=== PATIENT | male | born 1965 | race Caucasian/White ===

== ENCOUNTER 2024-09-21 09:31 | Emergency (ER) | payer MEDICAID, SELFPAY ==
--- NOTE | ~2024-09-21 | XR_ITS ---
EXAMINATION: XR CHEST 1 VIEW HISTORY: AMS COMPARISON: There are no prior studies for comparison. FINDINGS: A single AP portable view of the chest performed at 11:08 AM is submitted. The lungs are expanded and clear. There is no pleural effusion, pneumothorax, or pulmonary vascular congestion. The heart is normal in size. There is degenerative disc disease of the spine. XR/XR chest 1V IMPRESSION: Clear lungs. Electronically signed by: Wilder Lr MD 09/21/2024 11:19 AM EDT
--- NOTE | ~2024-09-21 | CT_ITS ---
EXAMINATION: CT HEAD WITHOUT CONTRAST CLINICAL INFORMATION: Altered mental status. COMPARISON: None available. TECHNIQUE: Contiguous axial imaging was performed from the skull base to vertex without intravenous administration of contrast. This CT examination was performed using dose optimization techniques as appropriate, variously including the following: *Automated exposure control *Adjustment of mA and/or kV according to patient size (this includes techniques or standardized protocols for targeted exams where dose is matched to indication/reason for exam; i.e. extremities or head) *Use of iterative reconstruction technique FINDINGS: There is no evidence of intracranial hemorrhage or extra-axial fluid collection. There is no mass effect, or edema. No CT evidence of acute territorial infarct. There is a focus of posterior right frontal and parietal encephalomalacia, likely old infarct. Mild resultant ex vacuo dilatation of the right lateral ventricular body and atrium. Ventricles, sulci, and cisterns are otherwise normal in size and configuration for patient age. No hydrocephalus. No midline shift. Negative hyperdense MCA sign. Negative insular ribbon sign. Old lacunar type infarcts right gangliocapsular region, and left thalamus. Patchy periventricular and deep white matter hypoattenuation is consistent with mild to moderate small vessel ischemic changes. Normal pituitary. Mild atheromatous calcification of the bilateral carotid siphons and V4 segments vertebral arteries bilaterally. Globes and orbital contents image normally. No extracranial soft tissue abnormalities. Small mucous retention cyst left maxillary antrum. The paranasal sinuses, mastoid air cells, and tympanic cavities are otherwise normally aerated. No suspicious bony abnormalities. There are no acute fractures evident. CT/CT head/brain wo IV con IMPRESSION: 1. No acute intracranial abnormality. 2. Old right frontoparietal region of encephalomalacia, likely old right MCA territory infarct. Small old lacunar type infarcts right gangliocapsular region and left thalamus. 3. Mild to moderate white matter small vessel ischemic changes. Electronically signed by: Jarrod Becker MD 09/21/2024 12:18 PM EDT
[2024-09-21 09:36] VITALS: BP 156/107; PULSE 117; O2SAT 97; BMI 28.7
--- NOTE | 2024-09-21 09:41 | ED_ITS ---
HPI - General Adult General Chief complaint: Recheck/Abnormal Lab/Rx Stated complaint: AMS,LOW BS 67 FROM SNF PER EMS Time Seen by Provider: 09/21/24 09:41 Source: patient and EMS Mode of arrival: EMS Limitations: no limitations History of Present Illness ED Provider: Jerri Mccarty PA-C HPI narrative: Patient is a 58 year old assigned male at with a history of left sided hemiplegia / hemiparesis s/p CVA, bipolar disorder, BPH, GERD, OA, hepatic fibrosis, PTSD, DM, and HLD, living at [facility], presenting to the emergency department today after an episode of altered mental status. EMS states that the patient was altered when they arrived with a sugar of 77 and they gave her glucagon and 15g of oral glucose. Patient states that he feels as he usually does. Patient denies any dizziness, lightheadedness, abdominal pain, nausea, vomiting, fever, chills, blurry vision, double vision, loss of vision, chest pain, difficulty breathing, shortness of breath, back pain, night sweats, pain with urination, increased urinary frequency, increased urinary urgency, blood in his urine or stool, syncope or a near syncopal episode, recent trauma or falls, bowel incontinence, bladder incontinence, or any other complaints at this time. Relieving factors: none Exacerbating factors: none Associated symptoms: denies other symptoms Treatments prior to arrival: none Related Data Allergies Allergy/AdvReac Type Severity Reaction Status Date / Time Penicillins AdvReac Gastrointestinal Verified 09/21/24 09:38 Upset Review of Systems 2 Constitutional: Constitutional: Reports no additional constitutional complaints, Denies chills, Denies fever(s) and Denies night sweats Eyes: Eyes: Reports no additional eye complaints, Denies blurry vision, Denies change in vision, Denies diplopia, Denies eye discharge, Denies loss of vision and Denies eye pain ENT: Denies dizziness Cardiovascular: Cardiovascular: Reports no additional cardiovascular complaints, Denies chest pain, Denies lightheadedness, Denies Loss of Consciousness and Denies dyspnea Respiratory: Respiratory: Reports no additional respiratory complaints and Denies dyspnea Gastrointestinal: Gastrointestinal: Reports no additional gastrointestinal complaints, Denies abdominal pain, Denies melena, Denies hematochezia, Denies change in bowel habits and Denies change in stool character Genitourinary: Genitourinary: Reports no additional male genitourinary complaints, Denies hematuria, Denies oliguria, Denies difficulty urinating, Denies dysuria, Denies urinary frequency, Denies urinary hesitancy, Denies urinary incontinence and Denies urinary urgency Musculoskeletal: Musculoskeletal: Reports no additional musculoskeletal complaints, Denies numbness and Denies tingling Neurologic: Denies dizziness, Denies loss of vision, Denies numbness and Denies tingling Comments: altered mental status - now resolved. Psychiatric: Psychiatric: Reports no additional psychiatric complaints Endocrine: Endocrine: Reports no additional endocrine complaints Hematologic/Lymphatic: Hematologic/Lymphatic: Reports no additional hematologic/lymphatic complaints Allergic/Immunologic: Allergic/Immunologic: Reports no additional allergic/immunologic complaints PMFSH Past Medical History Attestation statement: The following information was validated with the patient. Source: old records reviewed and nursing notes reviewed Social History Social History Smoked in Last 30 Days: No Use of substances other than those prescribed or required for medical reasons: No Advance Directives: No Advance Directives Information Provided: Yes Do you have a plan to hurt others: No Plan Physical Exam ED Vital Signs: Vital Signs - 24 hr 09/21/24 09:50 09/21/24 10:13 09/21/24 15:59 Temperature 97.1 F 96.8 F 97.1 F Pulse Rate 116 H 79 Respiratory Rate 18 18 Blood Pressure 173/69 H 186/97 H Pulse Oximetry 94 98 Oxygen Delivery Method Room Air Room Air BMI result Body Mass Index 28.7 Const General: cooperative, no acute distress, alert and awake Nutritional Appearance: well nourished Orientation/consciousness: patient oriented x3 Limitations: no limitations [facility] Head: Yes normal to inspection and Yes atraumatic Ears: hearing grossly normal bilaterally and external ears normal General nose exam: Normal external nose present, no nasal discharge noted and no epistaxis Face and sinus: Yes normal facial exam, No abrasion and No laceration Mouth: Normal oral and palatal mucosa present, no drooling and no muffled voice Eyes General: appearance normal, both eyes and all related structures Periorbital: periorbital findings normal Eyelids: Yes eyelids normal Conjunctivae: conjunctivae normal Pupils: Equal, round and reactive pupils present EOM: EOMs intact bilaterally Neck Neck: Yes normal visual inspection, Yes full ROM and Yes no lymphadenopathy Chest Chest palpation & inspection: normal inspection of the chest Resp Effort & Inspection: normal respiratory effort and able to speak in complete sentences GI Inspection: Yes normal to inspection Neuro Other: left sided hemiparesis / hemiplegia General: patient oriented x3 Cranial nerves: Yes Equal, round and reactive pupils present Cognition (Neuro): normal cognition Extrem General: Yes normal to inspection, Yes full ROM and Yes capillary refill normal Psych Appearance: grossly normal Mental Status: mental status grossly normal Affect: normal affect Attitude: cooperative Thought process: Normal thought process present Thought content: Normal thought content present Insight: Good insight present (Psych) Medications Administered Discontinued Medications Generic Name Dose Route Start Last Admin Trade Name Freq PRN Reason Stop Dose Admin Ceftriaxone Sodium 1 gm 09/21/24 11:46 09/21/24 12:31 Ceftriaxone Sodium 1 Gm Vial IVPUSH 09/21/24 11:47 1 gm ONCE ONE Administration Sodium Chloride 1,000 mls @ 999 mls/hr 09/21/24 12:00 09/21/24 15:52 Ns IV 09/21/24 13:00 Infused .Q1H1M MAURICE Infusion Lorazepam 1 mg 09/21/24 15:41 09/21/24 15:54 Lorazepam 1 Mg Tablet PO 09/21/24 15:42 1 mg ONCE ONE Administration Medical Decision Making Medical Decision Making [facility] Narrative: Patient is a 58 year old assigned male at with a history of left sided hemiplegia / hemiparesis s/p CVA, bipolar disorder, BPH, GERD, OA, hepatic fibrosis, PTSD, DM, and HLD, living at [facility], presenting to the emergency department today after an episode of altered mental status. Patient's physical exam was as noted in the physical exam portion of this note. Patient's blood work showed a WBC of 15.4 with a left shift, BUN of 29, CR of 1.35, lactic of 3.5, and ammonia of 63, with a total CK 450. Patient's urine showed no acute process. However, the patient was having difficulty urinating and found to have retention with 900mls on bladder scan for which a montoya catheter was placed. Patient's EKG was unremarkable. Patient's chest x-ray and head CT showed no acute process. I spoke to the [facility] Sweat Box Attendant, Dr. Rudd, who stated he would prefer the patient be transferred back to the [facility] facility rather than admitted. Patient's clinical presentation is consistent with an episode of hypoglycemia and new urinary retention and not sepsis (@1600). I explained my physical exam findings as well as all test results to the patient. I answered all questions asked by the patient. I stressed the importance of the patient taking his medication as directed (either prescribed or as the over the counter packaging recommends). I stressed the importance of the patient following up with his primary care provider and a urologist. I stressed the importance of the patient returning to the emergency department immediately if his symptoms were to worsen or if he were to develop any dizziness, shortness of breath, difficulty breathing, chest pain, blurry vision, loss of vision, nausea, vomiting, abdominal pain, fever, chills, back pain, or any other complaints. Patient verbalized agreement and understanding with this treatment plan and discharge back to [facility]. Differential Diagnosis Differential Diagnoses: The differential diagnosis associated with the presentation includes Episode of AMS secondary to hypoglycemia Urinary retention UTI Admission/Observation Consideration of admission/observation: Escalation of care including admission/observation considered Patient would have been admitted to the hospital had his work up had any findings where hospital admission was appropriate, his clinical presentation warranted hospital admission, and his facility medical front desk specialist didn't explicitly state not to admit the patient. Consult Healthcare Provider Management of the patient was discussed with: Catalog Specialist (spoke with Dr. Rudd as noted in the MDM Rationale portion of this note. ) Lab Data [facility] Lab Attestation statement: I reviewed the patient's lab results. My interpretation of these results are in the MDM Rationale portion of this note. 09/21/24 10:30 09/21/24 10:30 Labs: Lab Results 09/21/24 09/21/24 09/21/24 Range/Units 09:47 09:59 10:30 WBC 15.4 H (4.8-10.8) X10*3/uL RBC 4.21 L (4.60-5.80) X10*6/uL Hgb 12.6 L (14.0-18.0) g/dl Hct 37.2 L (42.0-52.0) % MCV 88.4 (80.0-98.0) fL MCH 29.9 (27.0-33.0) pg MCHC 33.9 (31.0-36.0) g/dl RDW 13.2 (11.0-16.0) % Plt Count 310 (160-400) X10*3/uL MPV 9.6 (9.4-12.4) fL Immature Gran % (Auto) 0.5 H (0.0-0.4) % Neut % (Auto) 86.9 H (45-73) % Lymph % (Auto) 6.8 L (20-40) % [place] % (Auto) 4.1 (2-11) % Eos % (Auto) 1.0 (0-4) % Baso % (Auto) 0.7 (0-2) % Lymph # (Auto) 1.0 L (1.2-4.9) X10*3/uL [place] # (Auto) 0.6 (0.1-1.2) X10*3/uL Eos # (Auto) 0.2 (0.0-0.4) X10*3/uL Baso # (Auto) 0.1 (0.0-0.2) X10*3/uL Abs Immat Gran (auto) 0.08 H (0.00-0.03) X10*3/uL Absolute Neuts (auto) 13.4 H (2.0-8.3) x10*3/uL Absolute Nucleated RBC 0.000 (0.0-0.012) X10*3/uL Nucleated RBC % (auto) 0.0 (0.0-0.2) /100WBC PT 13.3 H (10.9-12.4) SEC INR 1.1 (0.9-1.1) Sodium 143 (135-145) mmol/L Potassium 4.0 (3.3-5.1) mmol/L Chloride 111 H (96-108) mmol/L Carbon Dioxide 22 (22-29) mmol/L Anion Gap 14 (12-20) BUN 29 H (9-16) mg/dL Creatinine 1.35 (0.5-1.4) mg/dL Estim Creat Clear Calc 60.9 Estimated GFR 55 POC Glucose 157 H (60-115) mg/dL Random Glucose 134 H (60-115) mg/dL Lactic Acid 3.5 H* (0.5-2.0) mmol/L Calcium 9.7 (8.4-10.2) mg/dL Magnesium 2.0 (1.6-2.6) mg/dL Total Bilirubin 0.3 (0.0-1.0) mg/dL AST 24 (5-37) U/L ALT 18 (0-40) U/L Alkaline Phosphatase 81 (39-117) U/L Ammonia 63 H (13-55) umol/L Total Creatine Kinase 450 H (38-174) U/L Troponin I High Sens < 2.7 (<3.5-35.0) ng/L Total Protein 7.1 (6.5-8.0) g/dL Albumin 4.2 (3.5-5.0) g/dL TSH 1.45 (0.32-4.0) uIU/mL Urine Color Urine Appearance Urine pH (5.0-9.0) Ur Specific [place] (1.005-1.025) Urine Protein (Neg-Trace) mg/dL Urine Glucose (UA) (Negative) mg/dL Urine Ketones (Negative) mg/dL Urine Blood (Negative) Urine Nitrite (Negative) Ur Leukocyte Esterase (Negative) Urine RBC (0-2) /HPF Urine WBC (0-5) /HPF Ur Squamous Epith Cells (0-2) /HPF Urine Bacteria (None Seen) Hyaline Casts (0-2) /LPF Ethyl Alcohol < 10 mg/dL Influenza Type A (PCR) NEGATIVE (Negative) Influenza Type B (PCR) NEGATIVE (Negative) RSV RNA Qual (PCR) NEGATIVE (Negative) SARS-CoV-2 RNA (RT-PCR) NEGATIVE (Negative) 09/21/24 09/21/24 Range/Units 11:12 15:35 WBC (4.8-10.8) X10*3/uL RBC (4.60-5.80) X10*6/uL Hgb (14.0-18.0) g/dl Hct (42.0-52.0) % MCV (80.0-98.0) fL MCH (27.0-33.0) pg MCHC (31.0-36.0) g/dl RDW (11.0-16.0) % Plt Count (160-400) X10*3/uL MPV (9.4-12.4) fL Immature Gran % (Auto) (0.0-0.4) % Neut % (Auto) (45-73) % Lymph % (Auto) (20-40) % [place] % (Auto) (2-11) % Eos % (Auto) (0-4) % Baso % (Auto) (0-2) % Lymph # (Auto) (1.2-4.9) X10*3/uL [place] # (Auto) (0.1-1.2) X10*3/uL Eos # (Auto) (0.0-0.4) X10*3/uL Baso # (Auto) (0.0-0.2) X10*3/uL Abs Immat Gran (auto) (0.00-0.03) X10*3/uL Absolute Neuts (auto) (2.0-8.3) x10*3/uL Absolute Nucleated RBC (0.0-0.012) X10*3/uL Nucleated RBC % (auto) (0.0-0.2) /100WBC PT (10.9-12.4) SEC INR (0.9-1.1) Sodium (135-145) mmol/L Potassium (3.3-5.1) mmol/L Chloride (96-108) mmol/L Carbon Dioxide (22-29) mmol/L Anion Gap (12-20) BUN (9-16) mg/dL Creatinine (0.5-1.4) mg/dL Estim Creat Clear Calc Estimated GFR POC Glucose 131 H (60-115) mg/dL Random Glucose (60-115) mg/dL Lactic Acid (0.5-2.0) mmol/L Calcium (8.4-10.2) mg/dL Magnesium (1.6-2.6) mg/dL Total Bilirubin (0.0-1.0) mg/dL AST (5-37) U/L ALT (0-40) U/L Alkaline Phosphatase (39-117) U/L Ammonia (13-55) umol/L Total Creatine Kinase (38-174) U/L Troponin I High Sens (<3.5-35.0) ng/L Total Protein (6.5-8.0) g/dL Albumin (3.5-5.0) g/dL TSH (0.32-4.0) uIU/mL Urine Color Yellow Urine Appearance Clear Urine pH 7.0 (5.0-9.0) Ur Specific [place] 1.015 (1.005-1.025) Urine Protein 100 (2+) H (Neg-Trace) mg/dL Urine Glucose (UA) Negative (Negative) mg/dL Urine Ketones Negative (Negative) mg/dL Urine Blood Negative (Negative) Urine Nitrite Negative (Negative) Ur Leukocyte Esterase Small (1+) H (Negative) Urine RBC 0-2 (0-2) /HPF Urine WBC 11-20 H (0-5) /HPF Ur Squamous Epith Cells 0-2 (0-2) /HPF Urine Bacteria None Seen (None Seen) Hyaline Casts 0-2 (0-2) /LPF Ethyl Alcohol mg/dL Influenza Type A (PCR) (Negative) Influenza Type B (PCR) (Negative) RSV RNA Qual (PCR) (Negative) SARS-CoV-2 RNA (RT-PCR) (Negative) Independent Interpretation I performed an independent interpretation of an: EKG, Plain X-Ray and CT Scan Interpretation: My interpretation is in agreement with the radiologist's impression of these imaging studies. L Report Number: [id number]: Total DLP = 764.00 mGy-cm EXAMINATION: CT HEAD WITHOUT CONTRAST CLINICAL INFORMATION: Altered mental status. COMPARISON: None available. TECHNIQUE: Contiguous axial imaging was performed from the skull base to vertex without intravenous administration of contrast. This CT examination was performed using dose optimization techniques as appropriate, variously including the following: *Automated exposure control *Adjustment of mA and/or kV according to patient size (this includes techniques or standardized protocols for targeted exams where dose is matched to indication/reason for exam; i.e. extremities or head) *Use of iterative reconstruction technique FINDINGS: There is no evidence of intracranial hemorrhage or extra-axial fluid collection. There is no mass effect, or edema. No CT evidence of acute territorial infarct. There is a focus of posterior right frontal and parietal encephalomalacia, likely old infarct. Mild resultant ex vacuo dilatation of the right lateral ventricular body and atrium. Ventricles, sulci, and cisterns are otherwise normal in size and configuration for patient age. No hydrocephalus. No midline shift. Negative hyperdense MCA sign. Negative insular ribbon sign. Old lacunar type infarcts right gangliocapsular region, and left thalamus. Patchy periventricular and deep white matter hypoattenuation is consistent with mild to moderate small vessel ischemic changes. Normal pituitary. Mild atheromatous calcification of the bilateral carotid siphons and V4 segments vertebral arteries bilaterally. Globes and orbital contents image normally. No extracranial soft tissue abnormalities. Small mucous retention cyst left maxillary antrum. The paranasal sinuses, mastoid air cells, and tympanic cavities are otherwise normally aerated. No suspicious bony abnormalities. There are no acute fractures evident. CT/CT head/brain wo IV con IMPRESSION: 1. No acute intracranial abnormality. 2. Old right frontoparietal region of encephalomalacia, likely old right MCA territory infarct. Small old lacunar type infarcts right gangliocapsular region and left thalamus. 3. Mild to moderate white matter small vessel ischemic changes. Electronically signed by: Jarrod Becker MD 09/21/2024 12:18 PM EDT Dictated By: Jarrod Becker MD Signed By: Electronically signed by Jarrod Becker MD 09/21/24 1218 EXAMINATION: XR CHEST 1 VIEW HISTORY: AMS COMPARISON: There are no prior studies for comparison. FINDINGS: A single AP portable view of the chest performed at 11:08 AM is submitted. The lungs are expanded and clear. There is no pleural effusion, pneumothorax, or pulmonary vascular congestion. The heart is normal in size. There is degenerative disc disease of the spine. XR/XR chest 1V IMPRESSION: Clear lungs. Electronically signed by: Wilder Lr MD 09/21/2024 11:19 AM EDT Dictated By: Wilder Lr MD Signed By: Electronically signed by Wilder Lr MD 09/21/24 1119 I independently interpreted this EKG and am in agreement with the below findings: Vent. Rate: 104 BPM Atrial Rate: 104 BPM P-R Int: 154 ms QRS Dur: 66 ms QT Int: 352 ms P-R-T Axes: 51 -2 15 degrees QTcB Int: 462 ms Sinus tachycardia Possible Inferior infarct, age undetermined Possible Anterior infarct, age undetermined No previous ECGs available Referred By: Jerri Mccarty Electronically Signed By: ALEX FARAH MD Dictated By: Alex Farah MD Signed By: Electronically signed by Alex Farah MD 09/21/24 5628 Radiology Impression Discussion of test interpretation with radiology: I have reviewed the radiologist's reading. Independent Historian Clinical information obtained from an independent historian. History obtained from or confirmed by: EMS (EMS provided additional history and confirmed the history provided by the patient. ) and Other ([facility] staff provided additional history and confirmed the history provided by the patient.) Critical Care Time Critical Care Time Critical Care Time: Yes Total Critical Care Time: 48 Attestation: I spent 48 minutes of Critical Care Time with this patient. This does not include time spent on separately reported billable procedures. Discharge Plan Discharge Clinical Impression: AMS (altered mental status), Acute urinary retention Patient Disposition: Xfer Inpatient Rehab Fac Transfer Details: Back to [facility] Instructions: Urinary Retention in Men (ED), Altered Mental Status (ED) Additional Instructions: Follow up with your primary care provider and given your new urinary retention - a urologist. Return to the emergency department immediately if your symptoms worsen or if you develop any numbness, tingling, dizziness, shortness of breath, difficulty breathing, chest pain, blurry vision, loss of vision, nausea, vomiting, abdominal pain, fever, chills, back pain, or any other complaints. Please see the information below about our Patient Portal. If you are not yet enrolled in the [facility] Patient Portal, you will receive an enrollment email invitation following your visit to any [facility] care setting. You may also self-enroll in the Patient Portal by visiting our website: [email or web address] The following information is required to access the Patient Portal: - Your [facility] Medical Record Number - Your personal home email address (must match what is in your electronic medical record, Registration staff can assist with this) - Name - Date of Capabilities of the Patient Portal: - Message some providers - View upcoming appointments - Access your health summary, medical history, and visit history - View current conditions and allergies - View procedure and lab results - View your medications, including guidelines, side effects, and precautions - Complete pre-appointment questionnaires requested by your provider - Ready summary reports of your office visits and procedures To access the Patient Portal Mobile [employer], follow these directions: - Search [employer] in the [employer] Store or Real Time Translation Store - Download the [employer]ina - Search for [facility] - Enter your login/password Referrals: [facility]rology [facility] [Provider Group] (Call to establish and follow up with a urologist given your urinary retention. ) Stefano Rudd DO [Physician] - Print Language: Kinyarwanda
--- NOTE | 2024-09-21 09:42 | ECG_ITS ---
Test Reason : [facility] Blood Pressure : */* mmHG Vent. Rate : 104 BPM Atrial Rate : 104 BPM P-R Int : 154 ms QRS Dur : 66 ms QT Int : 352 ms P-R-T Axes : 51 -2 15 degrees QTcB Int : 462 ms Sinus tachycardia Possible Inferior infarct , age undetermined Possible Anterior infarct , age undetermined Abnormal ECG No previous ECGs available Referred By: Jerri Mccarty Electronically Signed By: HANS FARAH MD
[2024-09-21 09:50] VITALS: BP 173/69; PULSE 116; RESP 18; TEMP 36.2; O2SAT 94
[2024-09-21 09:51] LABS: Glucose, Whole Blood 157 mg/dL (60-115)
[2024-09-21 10:13] VITALS: TEMP 36
--- NOTE | 2024-09-21 10:16 | PC.NURSE ---
tanya from [facility] - normally a&ox4, SNF found him w/ AMS - POC obtained displaying 150mg/dL at facility. 77mg/dL upon EMS arrival - EMS administered 1mg glucagon IM R deltoid - POC rechecked s/p medication administration displaying 67mg/dL. EMS then administered 15g oral glucose. 155mg/dL upon EMS arrival. upon ED arrival - pt a&ox4. vss and up to date aside from being hypertensive. rectal temp obtained displaying 96.8. pt answering questions/following commands w/o difficulty. left arm noted to be contracted - pt reports that this is his baseline. POC obtained upon ED arrival - 157mg/dL. 22gIV placed in the right forearm - patent/intact. unable to obtain labs d/t pt being a difficult stick. tech attempting to obtain labs at this time. ekg performed/provided to provider. pt currently on RA w/o difficulty - no sob/wob noted. respirations even/unlabored. pt pending xray/CT at this time. plan of care ongoing.
[2024-09-21 10:37] LABS: MANUAL DIFF FLAG NO
--- NOTE | 2024-09-21 10:37 | PC.NURSE ---
multiple attempts made at obtaining lab work. labs eventually obtained/sent to lab. results pending.
[2024-09-21 10:48] LABS: Ammonia 63 umol/L (13-55)
[2024-09-21 10:50] LABS: Basophils Absolute Auto 0.1 X10*3/uL (0.0-0.2); Basophils Percent Auto 0.7 % (0-2); Eosinophils Absolute Auto 0.2 X10*3/uL (0.0-0.4); Hematocrit 37.2 % (42.0-52.0); Hemoglobin 12.6 g/dl (14.0-18.0); Imm Gran Abs Auto 0.08 X10*3/uL (0.00-0.03); Imm Gran Pct Auto 0.5 % (0.0-0.4); Lymphocytes Percent Auto 6.8 % (20-40); Mean Corpuscular HGB Conc 33.9 g/dl (31.0-36.0); Mean Corpuscular Hemoglobin 29.9 pg (27.0-33.0); Mean Corpuscular Volume 88.4 fL (80.0-98.0); Mean Platelet Volume 9.6 fL (9.4-12.4); Monocytes Absolute Auto 0.6 X10*3/uL (0.1-1.2); Monocytes Percent Auto 4.1 % (2-11); Neutrophils Absolute Auto 13.4 x10*3/uL (2.0-8.3); Neutrophils Percent Auto 86.9 % (45-73); Platelet Count 310 X10*3/uL (160-400); Red Blood Count 4.21 X10*6/uL (4.60-5.80); Red Cell Distribution Width 13.2 % (11.0-16.0); White Blood Count 15.4 X10*3/uL (4.8-10.8)
[2024-09-21 10:54] LABS: INTERNATIONAL NORM RATIO 1.1 (0.9-1.1); Prothrombin Time 13.3 SEC (10.9-12.4)
[2024-09-21 10:58] LABS: Alanine Aminotransferase 18 U/L (0-40); Albumin Level 4.2 g/dL (3.5-5.0); Alkaline Phosphatase 81 U/L (39-117); Anion Gap 14 (12-20); Aspartate Amino Transferase 24 U/L (5-37); Bilirubin Total 0.3 mg/dL (0.0-1.0); Blood Urea Nitrogen 29 mg/dL (9-16); Calcium 9.7 mg/dL (8.4-10.2); Carbon Dioxide 22 mmol/L (22-29); Chloride 111 mmol/L (96-108); Creatinine Clr Calc Pharmacy 60.9; Estimated Glomerular Filt Rate 55; Glucose Random 134 mg/dL (60-115); Sodium 143 mmol/L (135-145); Total Protein 7.1 g/dL (6.5-8.0)
[2024-09-21 11:02] LABS: Troponin-I High Sensitivity < 2.7 ng/L (<3.5-35.0)
[2024-09-21 11:02] LABS: Ethanol < 10 mg/dL
[2024-09-21 11:05] LABS: Lactic Acid 3.5 mmol/L (0.5-2.0)
[2024-09-21 11:15] LABS: Glucose, Whole Blood 131 mg/dL (60-115)
[2024-09-21 11:16] LABS: TSH reflex Free T4 1.45 uIU/mL (0.32-4.0)
[2024-09-21 11:21] LABS: Influenza A PCR NEGATIVE (Negative); Influenza B PCR NEGATIVE (Negative); Resp Syncy Virus RNA Qual PCR NEGATIVE (Negative); SARS COV2 PCR INHOUSE NEGATIVE (Negative)
[2024-09-21] MEDS: cefTRIAXone sodium 1 GM VIAL IVPUSH (12:31)
[2024-09-21] MEDS: 0.9 % Sodium Chloride 1,000 ML 999 ML IV (12:31)
--- NOTE | 2024-09-21 12:33 | PC.NURSE ---
cultures obtained/sent to lab. IVF/abx administered per provider order.
[2024-09-21 12:35] LABS: Reflex Lactate? Lactic Acid Added
--- OUTSIDE RECORDS SUMMARY | 2024-09-21 13:25 | XMS_ITS | Encounter Summary ---
Author Organization [employer] [facility] Address [address] [place] [address] Care Team Providers Care Para Operator Name Role Phone Stefano Rudd MD Primary Care Provider [phone] Encounter Details Date Type Department Care Team (Late st Contact Info) Description 08/26/2024 Lab Requisition [facility] - Main Lab [address] [facility] [place] [address] Stefano Rudd MD [address] [place] [address] [address] [place] Type 2 diabetes mellitus without complications (CMS/HCC V24, CMS/HCC V28) Social History Tobacco Use Types Packs/Day Years Used Date Smoking Tobacco: Never Assessed Sex and Gender Information Value Date Recorded Sex Assigned at Not on file Legal Sex Male 9:40 AM EST Gender Identity Not on file Sexual Orientation Not on file documented as of this encounter Plan of Treatment Not on file documented as of this encounter Visit Diagnoses Diagnosis Type 2 diabetes mellitus without complications (CMS/HCC V24, CMS/HCC V28) documented in this encounter Care Teams Para Operator Relationship Specialty Start Date End Date Stefano Rudd MD [address] [place] [address] [address] [place] PCP - General Internal Medicine 08/26/24 documented as of this encounter
--- OUTSIDE RECORDS SUMMARY | 2024-09-21 13:25 | XMS_ITS | Encounter Summary ---
Author Organization [facility] Address [address] [place] [address] Care Team Providers Care Community Worker Name Role Phone Stefano Rudd MD Primary Care Provider [phone] Encounter Details Date Type Department Care Team (Late st Contact Info) Description 08/26/[address] [facility] - Main Lab [address] [facility] [place] [place] [address] Stefano Rudd MD [address] [place] [address] Type 1 diabetes mellitus with diabetic polyneuropathy (CMS/HCC V24, CMS/HCC V28) Social History Tobacco Use Types Packs/Day Years Used Date Smoking Tobacco: Never Assessed Sex and Gender Information Value Date Recorded Sex Assigned at Not on file Legal Sex Male 9:40 AM EST Gender Identity Not on file Sexual Orientation Not on file documented as of this encounter Plan of Treatment Not on file documented as of this encounter Procedures Procedure Name Priority Date/Time Associated Diagnosis Comments COMPLETE BLOOD COUNT Routine 08/26/2024 7:09 AM EDT Type 1 diabetes mellitus with diabetic polyneuropathy ([facility]/HCC) HEMOGLOBIN A1C Routine 08/26/2024 7:09 AM EDT Type 1 diabetes mellitus with diabetic polyneuropathy ([facility]) documented in this encounter Results * (ABNORMAL) Hemoglobin A1c (08/26/2024 7:09 AM EDT) Hemoglobin A1C 7.4(H) <6.5 % LAB CHEMISTRY METHOD 08/26/2024 8:54 AM EDT [facility] Mean Bld Glu Estim. 166 mg/dL LAB CHEMISTRY METHOD 08/26/2024 8:54 AM T [facility] Blood Venous blood specimen / Unknown 08/26/2024 7:09 AM EDT 08/26/2024 7:44 AM EDT us Stefano Rudd MD LAB BLOOD ORDERABLES Final Resul t [facility] [address] [place] [address], [place] [phone] * (ABNORMAL) Complete blood count (08/26/2024 7:09 AM EDT) [facility] WBC 5.6 4.8 - 10.8 K/mcL LAB HEMETOLOGY METHOD 08/26/2024 8:02 AM EDT [facility] RBC 3.80(L) 4.50 - 5.50 M/mcL LAB HEMETOLOGY [facility] Hemoglobin 11.1(L) 13.5 - 17.5 g/dL LAB HEMETOLOGY METHOD 08/26/2024 8:02 AM [facility] Hematocrit 33.9(L) 42.0 - 54.0 % LAB HEMETOLOGY METHOD 08/26/2024 8:02 AM [facility] MCV 90.2 79.0 - 98.0 FL LAB HEMETOLOGY METHOD [facility] MCH 29.5 27.0 - 32.0 pcg LAB HEMETOLOGY METHOD 08/26/2024 8:02 AM [facility] MCHC 32.7 32.0 - 37.0 g/dL LAB HEMETOLOGY METHOD 08/26/2024 8:02 AM [facility] RDW 13.4 11.0 - 15.0 % LAB HEMETOLOGY METHOD 08/26/2024 8:02 AM [facility] Platelets 231 130 - 400 K/mcL LAB HEMETOLOGY METHOD 08/26/2024 8:02 AM EDT [facility] MPV 10.2 7.0 - 11.0 FL LAB HEMETOLOGY METHOD 08/26/2024 8:02 AM EDT [facility] NRBC 0.0 <1.0 % LAB HEMETOLOGY METHOD 08/26/2024 8:02 AM EDT [facility] NRBC Absolute 0.00 <0.10 K/mcL LAB HEMETOLOGY METHOD 08/26/2024 8:02 AM EDT [facility] Blood Venous blood specimen / Unknown 08/26/2024 7:09 AM EDT 08/26/2024 7:44 AM EDT us Stefano Rudd MD LAB BLOOD ORDERABLES Final Resul t [facility] [address] [place] [address], documented in this encounter Visit Diagnoses Diagnosis Type 1 diabetes mellitus with diabetic polyneuropathy (CMS/HCC V24, CMS/HCC V28) documented in this encounter Care Teams Community Worker Relationship Specialty Start Date End Date Stefano Rudd MD [address] [place] [address] Dr [address] [place], [place] PCP - General Internal Medicine 08/26/24 documented as of this encounter
--- OUTSIDE RECORDS SUMMARY | 2024-09-21 13:25 | XMS_ITS | Clinical Summary ---
Author Organization [address] [facility] Address [address] [place] [address] Phone Care Team Providers Care Stage Director Name Role Phone Stefano Rudd MD Primary Care Provider [phone] Encounters Date Type Department Care Team Description 08/27/2024 Lab Requisition [facility] Lab [address] [place] [phone] Stefano Rudd MD Urinary tract infection, site not specified 08/26/2024 Lab Requisition [facility] Lab [address] [place] [phone] Stefano Rudd MD Type 2 diabetes mellitus without complications (CMS/[facility] V24, [facility] V28) 08/26/2024 Lab Requisition [facility] Lab [address] [place] [phone] Stefano Rudd MD Type 1 diabetes mellitus with diabetic polyneuropathy (CMS/[facility] V24, [facility] V28) 08/10/2024 Lab Requisition [facility] Lab [address] [place] [phone] Stefano Rudd MD Bipolar disorder, unspecified (CMS/[facility] V24, CMS/[facility] V28) from Last 3 Months Social History Tobacco Use Types Packs/Day Years Used Date Smoking Tobacco: Never Assessed Sex and Gender Information Value Date Recorded Sex Assigned at Not on file Legal Sex Male 9:40 AM EST Gender Identity Not on file Sexual Orientation Not on file Plan of Treatment Health Maintenance Due Date Last Done Comments Diabetes: Annual Foot Exam 10/20/1977 Diabetes: Annual Retina Eye Exam 10/20/1977 DTaP,Tdap,and Td Vaccines (1 - Tdap) 10/20/1986 Hepatitis B Vaccines (1 of 3 - 19+ 3-dose series) 10/20/1986 Pneumococcal Vaccine: 50+ Years (1 of 2 - PCV) 10/20/1986 Pneumococcal Vaccine: Pediatrics (0 to 5 Years) and At-Risk Patients (6 to 64 Years) (1 of 2 - PCV) 10/20/1986 Zoster Vaccines (1 of 2) 10/20/2017 COVID-19 Vaccine ( season) 2024 Colorectal Cancer Screening: Colonoscopy 04/13/2024 Depression Screening 04/13/2024 HIV Screening 04/13/2024 Hepatitis C Screening 04/13/2024 Social Influencers of Health Screening 04/13/2024 Diabetes: Annual Urine Albumin-Creatinine Ratio (uACR) 08/26/2024 Influenza Vaccine (Season Ended) 2025 Diabetes: Blood Sugar Control Test (HGBA1C) 02/26/2025 08/26/2024, 08/10/2024, 05/11/2024, Additional history exists Diabetes: Annual GFR (Glomerular Filtration Rate) 05/11/2025 05/11/2024, 04/13/2024 Cholesterol Screening (Lipid Panel) 05/11/2029 05/11/2024, 04/13/2024 HIB Vaccines Aged Out No longer eligi ble based on patient's age to complete this topic HPV Vaccines Aged Out No longer eligi ble based on patient's age to complete this topic Hepatitis A Vaccines Aged Out No long er eligible based on patient's age to complete this topic IPV Vaccines Aged Out No longer eligi ble based on patient's age to complete this topic MMR Vaccines Aged Out No longer eligi ble based on patient's age to complete this topic Meningococcal ACWY Vaccine Aged Out N o longer eligible based on patient's age to complete this topic Meningococcal B Vaccine Aged Out No l onger eligible based on patient's age to complete this topic RSV Immunization Patients Under 20 months Aged Out No longer eligible based on patient's age to complete this topic Varicella Vaccines Aged Out No longer eligible based on patient's age to complete this topic Procedures Procedure Name Priority Date/Time Associated Diagnosis Comments URINALYSIS WITH REFLEX MICROSCOPIC STAT 08/27/2024 6:58 PM EDT Urinary tract infection, site not specified THOMAS URINE CULTURE TUBE STAT 08/27/2024 6:58 PM EDT Urinary tract infection, site not specified URINALYSIS WITH REFLEX MICROSCOPIC STAT 08/27/2024 6:58 PM EDT Urinary tract infection, site not specified HEMOGLOBIN A1C Routine 08/26/2024 7:09 AM EDT Type 1 diabetes mellitus with diabetic polyneuropathy (CMS/HCC) COMPLETE BLOOD COUNT Routine 08/26/2024 7:09 AM EDT Type 1 diabetes mellitus with diabetic polyneuropathy ([facility]/HCC) HEMOGLOBIN A1C Routine 08/10/2024 6:32 AM EST Bipolar disorder, unspecified ([facility]/HCC) COMPREHENSIVE METABOLIC PANEL Routine 05/11/2024 6:55 AM EST Hemiplegia and hemiparesis following cerebral infarction affecting left dominant side (CMS/HCC) LIPID PANEL WITH REFLEX TO DIRECT LDL Routine 05/11/2024 6:55 AM EST Hemiplegia and hemiparesis following cerebral infarction affecting left dominant side ([facility]/HCC) from Last 3 Months or Most Recently Relevant to Health Maintenance Results * (ABNORMAL) Urinalysis with reflex microscopic (08/27/2024 6:58 PM EDT) [facility] [place] Urine 1.022 1.003 - 1.030 LAB URINALYSIS - AUTOMATED METHOD 08/27/2024 9:16 PM [facility] pH, Urine 5.5 5.0 - 8.0 pH LAB URINALYSIS - AUTOMATED METHOD 08/27/2024 9:16 PM [facility] Leukocytes, Urine Moderate(A) Negative LAB URINALYSIS - AUTOMATED METHOD 08/27/2024 9:16 PM [facility] Nitrite, Urine Negative Negative LAB URINALYSIS - AUTOMATED METHOD 08/27/2024 9:16 PM [facility] Protein, Urine 30(A) <=Trace mg/dL LAB URINALYSIS - AUTOMATED METHOD 08/27/2024 9:16 PM [facility] Glucose, Urine 500(A) Negative mg/dL LAB URINALYSIS - AUTOMATED METHOD 08/27/2024 9:16 PM [facility] Ketones, Urine Negative Negative mg/dL LAB URINALYSIS - AUTOMATED METHOD 08/27/2024 9:16 PM [facility] Urobilinogen , Urine 1.0 0.2 - 1.0 mg/dL LAB URINALYSIS - AUTOMATED METHOD 08/27/2024 9:16 PM [facility] Bilirubin, Urine Negative Negative LAB URINALYSIS - AUTOMATED METHOD 08/27/2024 9:16 PM [facility] Blood, Urine Small(A) Negative LAB URINALYSIS - AUTOMATED METHOD 08/27/2024 9:16 PM [facility] RBC, Urine 10(H) 0 - 4 /HPF 08/27/2024 9:16 PM [facility] WBC, Urine >100(H) 0 - 4 /HPF 08/27/2024 9:16 PM [facility] Squamous Epithelial, Urine 2 0 - 60 /LPF 08/27/2024 9:16 PM [facility] Bacteria, Urine Negative Negative /HPF 08/27/2024 9:16 PM [facility] Hyaline Casts, Urine 0 0 - 3 /LPF 08/27/2024 9:16 PM [facility] Yeast, Urine Present(A) None /HPF 08/27/2024 9:16 PM [facility] Urine Urine specimen obtained by clean catch procedure / Unknown 08/27/2024 6:58 PM EDT 08/27/2024 8:54 PM EDT us Stefano Rudd MD LAB URINE ORDERABLES Final Resul t [facility] [address] [place] [address], [place] [phone] * Thomas urine culture tube (08/27/2024 6:58 PM EDT) [facility] Extra Tube Hold for add-ons. 08/27/2024 10:03 PM EDT [facility] Comment:Auto resulted. Urine Urine specimen obtained by clean catch procedure / Unknown 08/27/2024 6:58 PM EDT 08/27/2024 8:54 PM EDT Stefano Rudd MD LAB URINE ORDERABLES Final Resul t Performing Organization Address [facility] Co de Phone Number [facility] [address] [place] [address], [place] [phone] * (ABNORMAL) Complete blood count (08/26/2024 7:09 AM EDT) [facility] WBC 5.6 4.8 - 10.8 K/mcL LAB HEMETOLOGY METHOD 08/26/2024 8:02 AM [facility] RBC 3.80(L) 4.50 - 5.50 M/mcL LAB HEMETOLOGY METHOD 08/26/2024 8:02 AM [facility] Hemoglobin 11.1(L) 13.5 - 17.5 g/dL LAB HEMETOLOGY METHOD 08/26/2024 8:02 AM [facility] Hematocrit 33.9(L) 42.0 - 54.0 % LAB HEMETOLOGY METHOD 08/26/2024 8:02 AM [facility] MCV 90.2 79.0 - 98.0 FL LAB HEMETOLOGY METHOD 08/26/2024 8:02 AM [facility] MCH 29.5 27.0 - 32.0 pcg LAB HEMETOLOGY METHOD 08/26/2024 8:02 AM EDT [facility] MCHC 32.7 32.0 - 37.0 g/dL LAB HEMETOLOGY METHOD 08/26/2024 8:02 AM EDT [facility] RDW 13.4 11.0 - 15.0 % LAB HEMETOLOGY METHOD 08/26/2024 8:02 AM EDT [facility] Platelets 231 130 - 400 K/mcL LAB HEMETOLOGY METHOD 08/26/2024 8:02 AM EDT [facility] MPV 10.2 7.0 - 11.0 FL LAB HEMETOLOGY METHOD 08/26/2024 8:02 AM EDT [facility] NRBC 0.0 <1.0 % LAB HEMETOLOGY METHOD 08/26/2024 8:02 AM EDT [facility] NRBC Absolute 0.00 <0.10 K/mcL LAB HEMETOLOGY METHOD 08/26/2024 8:02 AM EDT [facility] Blood Venous blood specimen / Unknown 08/26/2024 7:09 AM EDT 08/26/2024 7:44 AM EDT us Stefano Rudd MD LAB BLOOD ORDERABLES Final Resul t [facility] [address] [place] [address], * (ABNORMAL) Hemoglobin A1c (08/26/2024 7:09 AM EDT) Only the most recent of2 resultswithin the time period is included. Hemoglobin A1C 7.4(H) <6.5 % LAB CHEMISTRY METHOD 08/26/2024 8:54 AM EDT [facility] Mean Bld Glu Estim. 166 mg/dL LAB CHEMISTRY METHOD 08/26/2024 8:54 AM EDT [facility] Blood Venous blood specimen / Unknown 08/26/2024 7:09 AM EDT 08/26/2024 7:44 AM EDT us Stefano Rudd MD LAB BLOOD ORDERABLES Final Resul t Performing Organization Address City/[facility]/ZIP Co de Phone Number [facility] [address] [place] [address], [place] [phone] * Lipid panel with reflex to direct LDL (05/11/2024 6:55 AM EST) Cholesterol 173 0 - 200 mg/dL LAB CHEMISTRY METHOD 05/11/2024 9:47 AM EST [facility] Triglycerides 55 0 - 150 mg/dL LAB CHEMISTRY METHOD 05/11/2024 9:47 AM [facility] HDL 75 >=40 mg/dL LAB CHEMISTRY METHOD 05/11/2024 9:47 AM [facility] LDL Calculated 87 0 - 100 mg/dL LAB CHEMISTRY METHOD 05/11/2024 9:47 AM EST [facility] VLDL Cholesterol Abdoul 11 mg/dL LAB CHEMISTRY METHOD 05/11/2024 9:47 AM [facility] Non HDL Chol. (LDL+VLDL) 98 <145 mg/dL LAB CHEMISTRY METHOD 05/11/2024 9:47 AM [facility] Chol/HDL Ratio 2.3 0.0 - 4.4 LAB CHEMISTRY METHOD 05/11/2024 9:47 AM [facility] Blood Venous blood specimen / Unknown 05/11/2024 6:55 AM EST 05/11/2024 8:55 AM EST us Stefano Rudd MD LAB BLOOD ORDERABLES Final Resul t Performing Organization Address [facility]ZIP Co de Phone Number [facility] [address] [place] [address], [place] [phone] * (ABNORMAL) Comprehensive metabolic panel (05/11/2024 6:55 AM EST) Sodium 136 133 - 145 mmol/L LAB CHEMISTRY METHOD 05/11/2024 9:54 AM [facility] Potassium 4.6 3.5 - 5.5 mmol/L LAB CHEMISTRY METHOD 05/11/2024 9:54 AM [facility] Chloride 104 96 - 110 mmol/L LAB CHEMISTRY METHOD 05/11/2024 9:54 AM [facility] CO2 24 21 - 32 mmol/L LAB CHEMISTRY METHOD 05/11/2024 9:54 AM [facility] Anion Gap 8 3 - 11 LAB CHEMISTRY METHOD 05/11/2024 9:54 AM [facility] Glucose 471(HH) 70 - 100 mg/dL LAB CHEMISTRY METHOD 05/11/2024 9:54 AM [facility] BUN 35(H) 5 - 25 mg/dL LAB CHEMISTRY METHOD 05/11/2024 9:54 AM [facility] Comment:Results verified by repeat testing Creatinine 1.31(H) 0.70 - 1.30 mg/dL LAB CHEMISTRY METHOD 05/11/2024 9:54 AM [facility] eGFR 64 >=60 mL/min/1. 73m2 LAB CHEMISTRY METHOD 05/11/2024 9:54 AM [facility] Comment:Calculation based on the??Chronic Kidney Disease Epidemiology Collaboration (CKD-EPI) equation refit??without adjustment for race. BUN/Creatinine Ratio 26.7 LAB CHEMISTRY METHOD 05/11/2024 9:54 AM [facility] Calcium 9.4 8.5 - 10.5 mg/dL LAB CHEMISTRY METHOD 05/11/2024 9:54 AM [facility] AST (SGOT) 14 10 - 42 unit/L LAB CHEMISTRY METHOD 05/11/2024 9:54 AM [facility] ALT (SGPT) 19 10 - 60 unit/L LAB CHEMISTRY METHOD 05/11/2024 9:54 AM EST [facility] Alkaline Phosphatase 125(H) 42 - 121 unit/L LAB CHEMISTRY METHOD 05/11/2024 9:54 AM EST [facility] Total Protein 6.2 6.0 - 8.0 g/dL LAB CHEMISTRY METHOD 05/11/2024 9:54 AM EST [facility] Albumin 3.2 3.2 - 5.0 g/dL LAB CHEMISTRY METHOD 05/11/2024 9:54 AM [facility] Total Bilirubin 0.3 0.0 - 1.4 mg/dL LAB CHEMISTRY METHOD 05/11/2024 9:54 AM [facility] Blood Venous blood specimen / Unknown 05/11/2024 6:55 AM EST 05/11/2024 8:55 AM EST us Stefano Rudd MD LAB BLOOD ORDERABLES Final Resul t [facility] [address] [place] [address], from Last 3 Months or Most Recently Relevant to Health Maintenance Insurance [facility] MEDICA[facility] Care Teams Stage Director Relationship Specialty Start Date End Date Stefano Rudd MD [address] [place] PCP - General Internal Medicine 08/26/24
--- OUTSIDE RECORDS SUMMARY | 2024-09-21 13:25 | XMS_ITS | Encounter Summary ---
Author Organization Address [address] [place] [address] Care Team Providers Care Wet Milling Wheel Operator Name Role Phone Stefano Rudd MD Primary Care Provider [phone] Encounter Details Date Type Department Care Team (Late st Contact Info) Description 08/10/2024 Lab Requisition [facility] - Main Lab [address] [place] [address] Stefano Rudd MD [address] [place] [address] [address] [place] Bipolar disorder, unspecified (CMS/HCC V24, CMS/[facility] V28) Social History Tobacco Use Types Packs/Day [...] Procedure Name Priority Date/Time Associated Diagnosis Comments HEMOGLOBIN A1C Routine 08/10/2024 6:32 AM EST Bipolar disorder, unspecified ([facility]) documented in this encounter Results * (ABNORMAL) Hemoglobin A1c (08/10/2024 6:32 AM EST) Hemoglobin A1C 7.9(H) <6.5 % LAB CHEMISTRY METHOD 08/10/2024 11:00 AM EST [facility] Mean Bld Glu Estim. 180 mg/dL LAB CHEMISTRY METHOD 08/10/2024 11:00 AM EST [facility] Blood Venous blood specimen / Unknown 08/10/2024 6:32 AM EST 08/10/2024 7:49 AM EST us Stefano Rudd MD LAB BLOOD ORDERABLES Final Resul t [facility] [address] [place] [address], documented in this encounter Visit Diagnoses Diagnosis Bipolar disorder, unspecified (CMS/[facility] V24, CMS/HCC V28) Bipolar disorder, unspecified documented in this encounter Care Teams Wet Milling Wheel Operator Relationship Specialty Start Date End Date Stefano Rudd MD [address] [place] [address] Dr [address] [place], [place] PCP - General Internal Medicine 08/26/24 documented as of this encounter
--- OUTSIDE RECORDS SUMMARY | 2024-09-21 13:26 | XMS_ITS | Clinical Summary ---
Author Organization [facility] Address [facility] [place] [address] Care Team Providers Care Piece Hand Name Role Phone James Pizano Olvin DAVIDSON Primary Care Provider [phone] Allergies Active Allergy Reactions Criticality Noted Date Comments Penicillins Rash 01/21/2021 Medications Medication Sig Dispensed Refills Start Date End Date Status albuteroL 90 mcg/actuation HFA Aerosol Inhaler Inhale 2 puffs into the lungs every 6 hours as needed for Wheezing. Use with spacer Active krill/om-3/dha/ep a/phospho/ast (MAXIMUM RED KRILL OMEGA-3 ORAL) Take 1,000 mg by mouth daily. Active polyethylene glycoL (Miralax) 17 gram oral powder packet Take 17 g by mouth 2 times daily. 09/16/2023 Active Insulin Syringe-Needle U-100 0.5 mL 31 gauge x 5/16 SyringeIndication s:diabetes mellitus Inject 1 each subcutaneously nightly. Indications: diabetes 200 each 10/15/2023 Active aspirin 81 mg chewable tablet Take 81 mg by mouth daily. 30 tablet 10/15/2023 Active baclofen (Lioresal) 10 mg tablet Take 1 tablet by mouth 3 times daily. 90 tablet 10/15/2023 Active bisacodyl EC (Dulcolax) 5 mg Tablet, Delayed Release (E.C.) Take 3 tablets by mouth daily. 90 tablet 10/15/[address] (Cymbalta) [address] capsule Take 1 capsule by mouth daily. 30 tablet 10/15/2023 Active omeprazole (PriLOSEC) [address] capsule Take 1 capsule by mouth 2 times daily. 60 capsule 10/15/2023 Active senna (Senokot) 8.6 mg tablet Take 2 tablets by mouth 2 times daily. 120 tablet 10/15/2023 Active diclofenac (Voltaren) 1 % Gel Apply 2 g topically 3 times daily as needed. 200 g 10/15/2023 Active psyllium husk Take 1 packet by mouth daily. 30 packet 10/15/2023 Active lidocaine (Lidoderm) 5% Adhesive Patch, Medicated Apply 1 patch onto the skin daily. (leave on for 12 hours and remove for 12 hours) 60 patch 10/15/2023 Active buprenorphine (Subutex) [address] 1 tablet under the tongue 3 times daily. 90 tablet 10/15/2023 Active blood sugar diagnostic strips Strip Use as instructed 200 each 02/12/2024 Active blood sugar diagnostic strips Strip Use as instructed 100 each 02/12/2024 Active Semglee U-100 Insulin 100 unit/mL SolutionIndicatio ns:type 1 diabetes mellitus Inject 10 Units subcutaneously nightly. Indications: type 1 diabetes mellitus 10 mL 02/12/2024 Active Semglee U-100 Insulin 100 unit/mL SolutionIndicatio ns:type 1 diabetes mellitus Inject 18 Units subcutaneously daily. Indications: type 1 diabetes mellitus 10 mL 02/12/2024 Active naloxone (Narcan) 4 mg/actuation nasal spray 1 spray by Nasal route once as needed (For opioid overdose) for up to 2 doses. [place] into one nostril (either left or right). 2 each 02/12/2024 Active Admelog U-100 Insulin lispro 100 unit/mL SolutionIndicatio ns:type 2 diabetes mellitus Inject 0-16 Units subcutaneously 3 times daily (before meals). Please see administration instructions based on size of your meal. Indications: type 2 diabetes mellitus 12 mL 02/12/2024 Active pregabalin (Lyrica) 75 mg capsule Take 1 capsule by mouth 3 times daily. 90 tablet 02/12/2024 Active atorvastatin (Lipitor) 40 mg tablet Take 1 tablet by mouth every evening. 30 tablet 02/12/2024 Active risperiDONE (RisperDAL) 1 mg tablet Take 1 tablet by mouth nightly. 30 tablet 02/12/2024 Active tamsulosin (Flomax) 0.4 mg capsule Take 2 capsules by mouth daily. 90 tablet 3 02/13/2024 Active apixaban (Eliquis) 5 mg tablet Take 1 tablet by mouth 2 times daily. 60 tablet 02/12/2024 Active Active Problems Problem Noted Date Diagnosed Date Pressure injury of deep tissue of sacral region 01/13/2024 Severe opioid use disorder 01/11/2024 Toxic metabolic encephalopathy 01/11/2024 DKA (diabetic ketoacidosis) 01/11/2024 TERRANCE (acute kidney injury) 01/11/2024 Coag negative Staphylococcus bacteremia 01/11/20 Altered mental status 09/26/2023 Constipation 08/25/2023 Urinary retention due to benign prostatic hyperp lasia 08/08/2023 R MCA/JOSEPH borderzone infarct s; associated with an atherosclerotic ICA occlusion 08/03/2023 Overview (08/05/2023): Admitted 07/31/2023 Dx: right hemispheric infarction associated with an atherosclerotic ICA occlusion Antithrombotic stroke prevention Statin therapy Lipid Panel Lab Results Component Value Date CHLPL 141 08/01/2023 HDL 36 08/01/2023 CHOLHDL 3.9 08/01/2023 TRIG 115 08/01/2023 LDLDIRECT 81 08/01/2023 Blood Pressure goals/control Rx SBP> Ideally: Glycemic control Lab Results Component Value Date HA1C 7.7 (H) 08/01/2023 Smoking/tobacco Social History Tobacco Use Smoking Status Every Day Years: 25 Types: Cigarettes Passive exposure: Current Smokeless Tobacco Not on file VTE ppx Fluids Nutrition Carb Control diet 60/ CHO counting level 2 Discharge barriers (eg., guardianship, advance directive, insurance) Meds reconciled? NIHSS (need approx 36 hour post t-PA and intervention) NIH Stroke Scale (from Navigator) NIH Stroke Scale Date 07/31/23 NIH Stroke Scale Time 2200 Level of Consciousness 0 LOC Questions 0 LOC Commands 0 Best Gaze 0 Vision 0 Facial Palsy 0 Motor Arm, Left 1 Motor Arm, Right 0 Motor Leg, Left 1 Motor Leg, Right 0 Limb Ataxia 1 Sensory 0 Best Language 0 Dysarthria 0 Extinction and Inattention: 1 NIH Total Score 4 Occlusion of right internal carotid artery 08/03 Chronic lacunar ischemic stroke 08/03/2023 Arthritis of right ankle 01/21/2021 Chronic hepatitis C 01/21/2021 Chronic pain of right ankle 01/21/2021 Chronic pain of right hand 01/21/2021 Cigarette smoker 01/21/2021 Diabetes mellitus type 1 01/21/2021 Fibrosis of liver 01/21/2021 History of positive hepatitis C 01/21/2021 Panic disorder 01/21/2021 H/O drug abuse 08/07/2020 Diabetic retinopathy 08/07/2020 Hypertension 08/07/2020 Marijuana use 08/07/2020 Bipolar disorder 06/10/2017 Chronic GERD 06/10/2017 Chronic low back pain 06/10/2017 Type 1 diabetes mellitus with retinopathy 2017 Opioid dependence 06/10/2017 Panic disorder without agoraphobia 06/10/2017 Post-traumatic stress disorder, chronic 06/10/19 18 Social History Tobacco Use Types Packs/Day Years Used Date Smoking Tobacco: Every Day Cigarettes Passive Smoke Exposure: Current Tobacco Cessation:Ready to Q uit: Yes; Counseling Given: Yes Alcohol Use Standard Drinks/Week Comments Yes 0 (1 standard drink = 0.6 oz pur e alcohol) [facility] Utilities Answer Date Recorded In the past 12 months has th e [employer], gas, oil, or water [employer] threatened to shut off services in your home? No 01/11/2024 Hunger Vital Sign Answer Date Recorded Within the past 12 months, y ou worried that your food would run out before you got the money to buy more. Never true 01/11/20 24 Within the past 12 months, t he food you bought just didn't last and you didn't have money to get more. Never true 01/11/2024 PRAPARE - Transportation Answer Date Re corded In the past 12 months, has l ack of transportation kept you from medical appointments or from getting medications? No 10/2023 In the past 12 months, has l ack of transportation kept you from meetings, work, or from getting things needed for daily living? No 01/11/2024 Housing Stability Vital Sign Answer Nicola e Recorded In the last 12 months, was t here a time when you were not able to pay the mortgage or rent on time? Patient unable to answer 09/28/2023 In the last 12 months, how m any places have you lived? 1 09/28/2023 In the last 12 months, was t here a time when you did not have a steady place to sleep or slept in a long term (including now)? No 09/28/2023 Housing Stability Vital Sign Answer Nicola e Recorded In the last 12 months, was t here a time when you were not able to pay the mortgage or rent on time? No 01/11/2024 In the past 12 months, how m any times have you moved where you were living? 1 01/11/2024 At any time in the past 12 m [facility], were you homeless or living in a long term (including now)? No 01/11/2024 DH IPV Inpatient Questions Answer Date Recorded Does Anyone Try to Keep You From Having Contact with Others or Doing Things Outside Your Home? no 024 Feels Threatened by Someone other (see comments) 01/15/2024 Feels Unsafe at Home or Work/School yes 01/15/2024 Physical Signs of Abuse Present no 01/15/2024 Sex and Gender Information Value Date Recorded Sex Assigned at Not on file Gender Identity Not on file Sexual Orientation Not on file Last Filed Vital Signs Vital Sign Reading Time Taken Comments Blood Pressure 115/69 02/12/2024 2:28 PM EDT Pulse 80 02/12/2024 7:39 AM EDT Temperature 36.9 ??C (98.4 ??F) 02/12/2024 2:28 PM ED T Respiratory Rate 18 02/12/2024 2:28 PM EDT Oxygen Saturation 96% 02/12/2024 2:28 PM EDT Inhaled Oxygen Concentration - - Weight 76.8 kg (169 lb 6.4 oz) 02/12/2024 9:23 A M EDT Height 170 cm (5' 6.93 ) 01/27/2024 1:32 PM EDT Body Mass Index 26.59 01/27/2024 1:32 PM EDT Plan of Treatment Health Maintenance Due Date Last Done Comments CT Colonography 1967 Colonoscopy 1967 Colorectal Cancer Screening 1967 FIT DNA 1967 FIT 1967 Sigmoidoscopy (10 year) with FIT yearly 1967 Sigmoidoscopy 1967 DM Opthalmology Exam 10/20/1977 Hepatitis A vaccine 0-18 yrs and Risk (1 of 2 - Risk 2-dose series) 10/20/1986 Hepatitis B vaccine (0-59 yr s) and Risk (1) 10/20/1986 Pneumoccocal Vaccine: 50+ (1 of 2 - PCV) 10/20/1986 Tetanus/Diphtheria/Pertussis Vaccines (1 - Tdap) 10/20/1986 Zoster vaccine (1 of 2) 10/20/2017 Covid-19 Vaccine (6 - 2023-2 5 season) 2024 05/27/2023, 03/05/2022, 06/26/2021, Additional history exists Influenza (Flu) vaccine (1 o f 1 - Influenza standard series) 02/07/2024 DM Hemoglobin A1c 04/12/2024 01/11/2024, 08/01/2023 DM Creatinine yearly 02/11/2025 02/12/2024, 02/11/2024, 02/10/2024, Additional history exists Lipid Screening Discontinued 08/01/2023 HIV screen Completed 01/21/2024 Procedures Procedure Name Priority Date/Time Associated Diagnosis Comments BASIC METABOLIC PANEL Routine 02/12/2024 6:20 AM EDT BLOOD GAS ARTERIAL POC Routine 01/21/2024 5:33 AM EDT HEMOGLOBIN A1C Add-On 01/11/2024 5:59 AM EDT HDL/CHOL PROFILE Routine 08/01/2023 6:35 AM EST from Last 3 Months or Most Recently Relevant to Health Maintenance Results * (ABNORMAL) Basic Metabolic Panel (02/12/2024 6:20 AM EDT) Glucose 127 65 - 199 mg/dL 02/12/2024 8:52 AM EDT [facility] Comment:Glucose Concentratio n >=200 mg/dL plus symptoms is consistent with Diabetes Mellitus. Blood Urea Nitrogen 55(H) 10 - 20 mg/dL 02/12/2024 8:52 AM EDT [facility] Creatinine 1.38 0.80 - 1.50 mg/dL 02/12/2024 8:52 AM EDT [facility] Sodium 138 135 - 145 mMol/L 02/12/2024 8:52 AM EDT [facility] Potassium 4.3 3.5 - 5.0 mMol/L 02/12/2024 8:52 AM EDT [facility] Chloride 103 98 - 107 mMol/L 02/12/2024 8:52 AM EDT [facility] Carbon Dioxide 26 22 - 31 mMol/L 02/12/2024 8:52 AM EDT [facility] Anion Gap 9 5 - 15 mMol/L 02/12/2024 8:52 AM EDT [facility] Calcium 9.3 8.5 - 10.5 mg/dL 02/12/2024 8:52 AM [facility] Est Glomerular Filtration Rate - Male 60 mL/min/1. 73 m?? 02/12/2024 8:52 AM T [facility] Comment: This patient's estimated GFR was calculated using the 2020 CKD-EPI equation. The estimated GFR can vary from the measured GFR by up to 30% in the absence of rapidly changing kidney function. Assessment of the estimated GFR is not appropriate when creatinine concentrations are rapidly changing. For clinical situations in which a more precise estimate of GFR is necessary, consider alternative methods of GFR estimation such as a 24-hour urine creatinine clearance. Assignment of CKD stage 1 - 5 for patients with an eGFR near the transition point between stages may be based on clinical assessment of muscle mass and symptoms in addition to eGFR. Link: eGFR Calculator [employer] Blood VENOUS BLOOD SPECIMEN / Unknown IP Care Team Draw / Unknown 02/12/2024 6:20 AM EDT 02/12/2024 6:27 AM EDT Rakan Cruz MD CHEMISTRY ORDERABLES [facility] [place] [address] * (ABNORMAL) Blood Gas, Arterial POC (01/21/2024 5:33 AM EDT) pH, Arterial 7.40 7.35 - 7.45 01/21/2024 6:53 AM EDT [facility] PCO2, Arterial 40 35 - 45 mmHg 01/21/2024 6:53 AM [facility] PO2, Arterial 97 85 - 104 mmHg 01/21/2024 6:53 AM [facility] Bicarbonate, Arterial 24.2 20.0 - 26.0 mmol/L 01/21/2024 6:53 AM [facility] Base Excess, Arterial -0.5 -3.0 - 3.0 mmol/L 01/21/2024 6:53 AM [facility] Hemoglobin, Arterial 9.4(L) 13.7 - 16.5 g/dL 01/21/2024 6:53 AM [facility] Oxyhemoglobin, Arterial 96.3 94.0 - 97.0 % 01/21/2024 6:53 AM [facility] Carboxyhemoglobin, Arterial 0.6 % 01/21/2024 6:53 AM [facility] Comment: Nonsmokers: 0.5-1.5% COHB ?? Smokers: Variable ??but usually less than 10% ?? Toxic: 20-30% COHB ?? Lethal: Greater than 60% COHB Methemoglobin, Arterial 0.3 <=1.5 % 01/21/2024 6:53 AM [facility] Sodium, Arterial 136 135 - 145 mmol/L 01/21/2024 6:53 AM [facility] Potassium, Arterial 3.9 3.5 - 5.0 mmol/L 01/21/2024 6:53 AM [facility] Chloride, Arterial 103 98 - 107 mmol/L 01/21/2024 6:53 AM [facility] Lactate, Arterial 1.8 0.5 - 2.2 mmol/L 01/21/2024 6:53 AM [facility] Fraction of Inspired Oxygen 21 % 01/21/2024 6:53 AM [facility] PF Ratio 462 Ratio 01/21/2024 6:53 AM [facility] Comment:PF ratio calculated using the non-temperature corrected pO2 result. IONIZED CALCIUM, ARTERIAL 1.18 1.15 - 1.33 mmol/L 01/21/2024 6:53 AM EDT [facility] Glucose, Arterial 138 65 - 199 mg/dL 01/21/2024 6:53 AM EDT [facility] Comment:Glucose Concentratio n >=200 mg/dL plus symptoms is consistent with Diabetes Mellitus. Blood ARTERIAL BLOOD / Unknown 01/21/2024 5:33 AM EDT 01/21/2024 6:53 AM EDT Nghia Westbrook DO POINT OF CARE TEST O RDERABLES Performing Organization Address City/[facility]/ZIP Co de Phone Number [facility] [place] [address] * (ABNORMAL) Hemoglobin A1c (01/11/2024 5:59 AM EDT) Hemoglobin A1c 8.6(H) 4.3 - 5.6 % 01/11/2024 8:08 AM EDT [facility] Comment: Per ADA guidelines, without clear symptoms of hyperglycemia or a random plasma glucose >199 mg/dL, a single abnormal A1c measurement cannot be used to diagnose diabetes mellitus. The diagnosis must be confirmed by either 1) a concurrent abnormal fasting plasma glucose or impaired response to oral glucose tolerance testing, or 2) an additional abnormal A1c, impaired fasting plasma glucose, or impaired response to oral glucose tolerance testing on a different day. A1c results obtained on patients with altered red blood cell turnover may not be product representative of glycemic control. Reference Interval: 4.3 - 5.6% 5.7 - 6.4%: Consistent with prediabetes >=6.5%: Consistent with diagnosis of diabetes mellitus Estimated Average Glucose 200 mg/dL 01/11/2024 8:08 AM EDT [facility] Blood VENOUS BLOOD SPECIMEN / Unknown IP Care Team Draw / Unknown 01/11/2024 5:59 AM EDT 01/11/2024 6:08 AM EDT Alverto Almanza MD CHEMISTRY ORDERABLES [facility] [place] [address] * HDL/Cholesterol Profile (08/01/2023 6:35 AM EST) Cholesterol, Total 141 mg/dL [facility] Comment: Lower Risk: <200 mg/dL Average Risk: 200-239 mg/dL Higher Risk: >po=600 mg/dL HDL Cholesterol 36 mg/dL [facility] Comment: Males: ?? Higher Risk: <40 mg/dL Females: ?? Higher Risk: <50 mg/dL Cholesterol/HDL Ratio 3.9 ratio [facility] Chol/HDL Interpretation See Note [facility] Comment: Lipid management should be guided by a patient? s ASCVD risk, goals and preferences. ACC/AHA Guidelines recommend high intensity statin if clinical ASCVD or LDL greater than or equal to 190 mg/dL. http://140 Proof.com/WFM-DDU-Ebxwiajcx Measure LDL if Total Cholesterol minus HDL Cholesterol is greater than 220 mg/dL. Adults aged 40-75 with LDL 70-189 mg/dL should have their 10 year ASCVD risk estimated with the ACC/AHA ASCVD risk collision estimator http://tools.acc.org/HBDBR-Xpqg-Numsyuyvp/ Statin should be discussed if risk greater than or equal to 7.5% in non-diabetics. With diabetes, moderate intensity statin is recommended if risk less than 7.5%, high intensity if risk greater than or equal to 7.5%. Annual lipid monitoring on statins is not necessary. Lifestyle modification is a critical component of ASCVD risk reduction. Blood 08/01/2023 6:35 AM EST 08/01/2023 6:44 AM EST Narrative Resulting Agency Comment Spec In Lab Zoe Marie MD CHEMISTRY ORDERABL ES [facility] [place] [address] from Last 3 Months or Most Recently Relevant to Health Maintenance Advance Directives Documents on File Type Date Recorded Patient Supervisor White Sugar Expl anation Advance Directives and Living Will 01/19/2024 12:27 PM Nohemy Wilson * Attempt Cardiopulmonary Resuscitation - Inpatient (Latest Code Status on File) Date Activated Date Inactivated Comments 01/11/2024 5:34 AM 02/12/2024 6:10 PM Question Answer Comments Code Status decision made by: Patient Content of discussion: full code * Attempt Cardiopulmonary Resuscitation - Inpatient Date Activated Date Inactivated Comments 09/26/2023 7:02 PM 10/15/2023 5:04 PM Question Answer Comments Code Status decision made by: Patient * Attempt Cardiopulmonary Resuscitation - Inpatient Date Activated Date Inactivated Comments 07/31/2023 10:17 PM 09/16/2023 12:43 PM Question Answer Comments Code Status decision made by: Patient Care Teams Piece Hand Relationship Specialty Start Date End Date James Pizano, [employer] [address] [place] [address] PCP - General Family Medicine 06/10/17
--- OUTSIDE RECORDS SUMMARY | 2024-09-21 13:26 | XMS_ITS | Encounter Summary ---
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, CMS/HCC V28); Benign prostatic hyperplasia with lower urinary tract symptoms Social History Tobacco Use Types Packs/Day Years [...] Procedure Name Priority Date/Time Associated Diagnosis Comments LIPID PANEL WITH REFLEX TO DIRECT LDL Routine 04/13/2024 8:40 AM EST Type 1 diabetes mellitus with diabetic nephropathy (CMS/HCC) Benign prostatic hyperplasia with lower urinary tract symptoms PROSTATE SPECIFIC ANTIGEN DIAGNOSTIC Routine 04/13/2024 8:40 AM EST Type 1 diabetes mellitus with diabetic nephropathy (CMS/HCC) Benign prostatic hyperplasia with lower urinary tract symptoms CBC WITH AUTO DIFFERENTIAL Routine 04/13/2024 8:40 AM EST Type 1 diabetes mellitus with diabetic nephropathy (CMS/HCC) Benign prostatic hyperplasia with lower urinary tract symptoms CBC AND DIFFERENTIAL Routine 04/13/2024 8:40 AM EST Type 1 diabetes mellitus with diabetic nephropathy (CMS/HCC) Benign prostatic hyperplasia with lower urinary tract symptoms THYROID STIMULATING HORMONE Routine 04/13/2024 8:40 AM EST Type 1 diabetes mellitus with diabetic nephropathy (CMS/HCC) Benign prostatic hyperplasia with lower urinary tract symptoms HEMOGLOBIN A1C Routine 04/13/2024 8:40 AM EST Type 1 diabetes mellitus with diabetic nephropathy (CMS/HCC) Benign prostatic hyperplasia with lower urinary tract symptoms COMPREHENSIVE METABOLIC PANEL Routine 04/13/2024 8:40 AM EST Type 1 diabetes mellitus with diabetic nephropathy (CMS/HCC) Benign prostatic hyperplasia with lower urinary tract symptoms documented in this encounter Results * (ABNORMAL) CBC auto differential (04/13/2024 8:40 AM EST) [facility] WBC 11.0(H) 4.8 - 10.8 K/mcL LAB HEMETOLOGY METHOD 04/13/2024 10:54 AM [facility] RBC 3.40(L) 4.50 - 5.50 M/mcL LAB HEMETOLOGY METHOD 04/13/2024 10:54 AM [facility] Hemoglobin 10.6(L) 13.5 - 17.5 g/dL LAB HEMETOLOGY METHOD 04/13/2024 10:54 AM [facility] Hematocrit 32.3(L) 42.0 - 54.0 % LAB HEMETOLOGY METHOD 04/13/2024 10:54 AM [facility] MCV 94.7 79.0 - 98.0 FL LAB HEMETOLOGY METHOD 04/13/2024 10:54 AM [facility] MCH 31.1 27.0 - 32.0 pcg LAB HEMETOLOGY METHOD 04/13/2024 10:54 AM [facility] MCHC 32.8 32.0 - 37.0 g/dL LAB HEMETOLOGY METHOD 04/13/2024 10:54 AM [facility] RDW 13.7 11.0 - 15.0 % LAB HEMETOLOGY METHOD 04/13/2024 10:54 AM [facility] Platelets 377 130 - 400 K/mcL LAB HEMETOLOGY METHOD 04/13/2024 10:54 AM [facility] MPV 10.8 7.0 - 11.0 FL LAB HEMETOLOGY METHOD 04/13/2024 10:54 AM [facility] NRBC 0.0 <1.0 % LAB HEMETOLOGY METHOD 04/13/2024 10:54 AM [facility] NRBC Absolute 0.00 <0.10 K/mcL LAB HEMETOLOGY METHOD 04/13/2024 10:54 AM [facility] Neutrophils Relative 78.2 % LAB HEMETOLOGY METHOD 04/13/2024 10:54 AM [facility] Lymphocytes Relative 12.3 % LAB HEMETOLOGY METHOD 04/13/2024 10:54 AM [facility] Monocytes Relative 4.9 % LAB HEMETOLOGY METHOD 04/13/2024 10:54 AM [facility] Eosinophils Relative 3.1 % LAB HEMETOLOGY METHOD 04/13/2024 10:54 AM [facility] Basophils Relative 0.9 % LAB HEMETOLOGY METHOD 04/13/2024 10:54 AM [facility] Immature Granulocytes Relative 0.6 % LAB HEMETOLOGY METHOD 04/13/2024 10:54 AM [facility] Neutrophils Absolute 8.59(H) 1.50 - 7.00 K/mcL LAB HEMETOLOGY METHOD 04/13/2024 10:54 AM [facility] Lymphocytes Absolute 1.35 1.00 - 5.00 K/mcL LAB HEMETOLOGY METHOD 04/13/2024 10:54 AM [facility] Monocytes Absolute 0.54 0.20 - 1.00 K/mcL LAB HEMETOLOGY METHOD 04/13/2024 10:54 AM EST [facility] Eosinophils Absolute 0.34 0.00 - 0.50 K/[facility] LAB HEMETOLOGY METHOD 04/13/2024 10:54 AM EST [facility] Basophils Absolute 0.10 0.00 - 0.20 K/[facility] LAB HEMETOLOGY METHOD 04/13/2024 10:54 AM EST [facility] Immature Granulocytes Absolute 0.07(H) 0.00 - 0.03 K/[facility] LAB HEMETOLOGY METHOD 04/13/2024 10:54 AM EST [facility] Blood Venous blood specimen / Unknown 04/13/2024 8:40 AM EST 04/13/2024 9:44 AM EST us Stefano Rudd MD LAB BLOOD ORDERABLES Final Resul t Performing Organization Address City/[facility]/ZIP Co de Phone Number [facility] [address] [place] [address], [place] [phone] * Thyroid stimulating hormone (04/13/2024 8:40 AM EST) TSH 0.59 0.40 - 4.00 mcIU/mL LAB CHEMISTRY METHOD 04/13/2024 10:54 AM EST [facility] Blood Venous blood specimen / Unknown 04/13/2024 8:40 AM EST 04/13/2024 9:44 AM EST us Stefano Rudd MD LAB BLOOD ORDERABLES Final Resul t [facility] [address] [place] [address], [place] [phone] * Prostate specific antigen diagnostic (04/13/2024 8:40 AM EST) PSA 0.42 0.00 - 4.00 ng/mL LAB CHEMISTRY METHOD 04/13/2024 10:54 AM EST [facility] Blood Venous blood specimen / Unknown 04/13/2024 8:40 AM EST 04/13/2024 9:44 AM EST Narrative [facility] - 04/13/2024 10:54 AM EST The Siemens Advia Centaur Chemiluminescent Immunoassay is used. Results obtained with different assay methods or kits cannot be used interchangeably. Results cannot be interpreted as absolute evidence of the presence or absence of malignant disease. us Stefano Rudd MD LAB BLOOD ORDERABLES Final Resul t Performing Organization Address [facility]/ZIP Co de Phone Number [facility] [address] [place] [address], [place] [phone] * (ABNORMAL) Hemoglobin A1c (04/13/2024 8:40 AM EST) Hemoglobin A1C 7.2(H) <6.5 % LAB CHEMISTRY METHOD 04/14/2024 12:23 PM EST [facility] Mean Bld Glu Estim. 160 mg/dL LAB CHEMISTRY METHOD 04/14/2024 12:23 PM EST [facility] Blood Venous blood specimen / Unknown 04/13/2024 8:40 AM EST 04/13/2024 9:44 AM EST us Stefano Rudd MD LAB BLOOD ORDERABLES Final Resul t Performing Organization Address [facility]/ZIP Co de Phone Number [facility] [address] [place] [address], [place] [phone] * (ABNORMAL) Lipid panel with reflex to direct LDL (04/13/2024 8:40 AM EST) Cholesterol 193 0 - 200 mg/dL LAB CHEMISTRY METHOD 04/13/2024 10:54 AM EST [facility] Triglycerides 81 0 - 150 mg/dL LAB CHEMISTRY METHOD 04/13/2024 10:54 AM EST [facility] HDL 70 >=40 mg/dL LAB CHEMISTRY METHOD 04/13/2024 10:54 AM [facility] LDL Calculated 107(H) 0 - 100 mg/dL LAB CHEMISTRY METHOD 04/13/2024 10:54 AM EST [facility] VLDL Cholesterol Abdoul 16.2 mg/dL LAB CHEMISTRY METHOD 04/13/2024 10:54 AM [facility] Non HDL Chol. (LDL+VLDL) 123 <145 mg/dL LAB CHEMISTRY METHOD 04/13/2024 10:54 AM [facility] Chol/HDL Ratio 2.8 0.0 - 4.4 LAB CHEMISTRY METHOD 04/13/2024 10:54 AM [facility] Blood Venous blood specimen / Unknown 04/13/2024 8:40 AM EST 04/13/2024 9:44 AM EST us Stefano Rudd MD LAB BLOOD ORDERABLES Final Resul t [facility] [address] [place] [address], [place] [phone] * (ABNORMAL) Comprehensive metabolic panel (04/13/2024 8:40 AM EST) Sodium 139 133 - 145 mmol/L LAB CHEMISTRY METHOD 04/13/2024 10:54 AM [facility] Potassium 4.4 3.5 - 5.5 mmol/L LAB CHEMISTRY METHOD 04/13/2024 10:54 AM [facility] Chloride 105 96 - 110 mmol/L LAB CHEMISTRY METHOD 04/13/2024 10:54 AM [facility] CO2 28 21 - 32 mmol/L LAB CHEMISTRY METHOD 04/13/2024 10:54 AM [facility] Anion Gap 6 3 - 11 LAB CHEMISTRY METHOD 04/13/2024 10:54 AM [facility] Glucose 76 70 - 100 mg/dL LAB CHEMISTRY METHOD 04/13/2024 10:54 AM [facility] BUN 15 5 - 25 mg/dL LAB CHEMISTRY METHOD 04/13/2024 10:54 AM [facility] Creatinine 0.96 0.70 - 1.30 mg/dL LAB CHEMISTRY METHOD 04/13/2024 10:54 AM [facility] eGFR 93 >=60 mL/min/1. 73m2 LAB CHEMISTRY METHOD 04/13/2024 10:54 AM [facility] Comment:Calculation based on the??Chronic Kidney Disease Epidemiology Collaboration (CKD-EPI) equation refit??without adjustment for race. BUN/Creatinine Ratio 15.6 LAB CHEMISTRY METHOD 04/13/2024 10:54 AM [facility] Calcium 9.8 8.5 - 10.5 mg/dL LAB CHEMISTRY METHOD 04/13/2024 10:54 AM [facility] AST (SGOT) 21 10 - 42 unit/L LAB CHEMISTRY METHOD 04/13/2024 10:54 AM [facility] ALT (SGPT) 23 10 - 60 unit/L LAB CHEMISTRY METHOD 04/13/2024 10:54 AM [facility] Alkaline Phosphatase 125(H) 42 - 121 unit/L LAB CHEMISTRY METHOD 04/13/2024 10:54 AM [facility] Total Protein 7.1 6.0 - 8.0 g/dL LAB CHEMISTRY METHOD 04/13/2024 10:54 AM [facility] Albumin 3.4 3.2 - 5.0 g/dL LAB CHEMISTRY METHOD 04/13/2024 10:54 AM [facility] Total Bilirubin 0.2 0.0 - 1.4 mg/dL LAB CHEMISTRY METHOD 04/13/2024 10:54 AM [facility] Blood Venous blood specimen / Unknown 04/13/2024 8:40 AM EST 04/13/2024 9:44 AM EST us Stefano Rudd MD LAB BLOOD ORDERABLES Final Resul t [facility] ([facility]) [facility] [address] [place] [address], documented in this encounter Visit Diagnoses Diagnosis Type 1 diabetes mellitus with diabetic nephropathy (CMS/[facility] V24, CMS/[facility] V28) Benign prostatic hyperplasia with lower urinary tract symptoms documented in this encounter Care Teams Aed Trainer Relationship Specialty Start Date End Date Stefano Rudd MD [address] [place] [address] Dr [address] [place], [place] PCP - General Internal Medicine 08/26/24 documented as of this encounter
--- OUTSIDE RECORDS SUMMARY | 2024-09-21 13:26 | XMS_ITS | Continuity of Care Document ---
Author Organization [facility] Address [address] [place] [address] [address] [place], [place] Phone [phone] Care Team Providers Care Hand Stitcher Name Role Phone Jeremie Hanson PA-C Care Team Information Rec eiver Unavailable MARY JO MARQUIS M.D. Care Team Information Rec eiver Unavailable Jeremie Hanson PA-C Primary Care Physician Un available Social History Type Date Description Comments Sex Unknown
--- OUTSIDE RECORDS SUMMARY | 2024-09-21 13:26 | XMS_ITS | Encounter Summary ---
Author Organization [facility] Address [address] [place] [address] Care Team Providers Care Gang Miner Name Role Phone Stefano Rudd MD Primary Care Provider [phone] Encounter Details Date Type Department Care Team (Late st Contact Info) Description 05/11/2024 Lab Requisition [facility] - Main Lab [address] [facility] [place] [address] Stefano Rudd MD [address] [place] [address] Dr [address] SHALA Abarca Hemiplegia and hemiparesis following cerebral infarction affecting left dominant side (CMS/HCC V24, CMS/HCC V28) Social History Tobacco [...] Procedure Name Priority Date/Time Associated Diagnosis Comments PROSTATE SPECIFIC ANTIGEN SCREEN Routine 05/11/2024 6:55 AM EST Hemiplegia and hemiparesis following cerebral infarction affecting left dominant side (CMS/HCC) LIPID PANEL WITH REFLEX TO DIRECT LDL Routine 05/11/2024 6:55 AM EST Hemiplegia and hemiparesis following cerebral infarction affecting left dominant side (CMS/HCC) CBC WITH AUTO DIFFERENTIAL Routine 05/11/2024 6:55 AM EST Hemiplegia and hemiparesis following cerebral infarction affecting left dominant side (CMS/HCC) CBC AND DIFFERENTIAL Routine 05/11/2024 6:55 AM EST Hemiplegia and hemiparesis following cerebral infarction affecting left dominant side (CMS/HCC) THYROID STIMULATING HORMONE Routine 05/11/2024 6:55 AM EST Hemiplegia and hemiparesis following cerebral infarction affecting left dominant side (CMS/HCC) HEMOGLOBIN A1C Routine 05/11/2024 6:55 AM EST Hemiplegia and hemiparesis following cerebral infarction affecting left dominant side (CMS/HCC) COMPREHENSIVE METABOLIC PANEL Routine 05/11/2024 6:55 AM EST Hemiplegia and hemiparesis following cerebral infarction affecting left dominant side (CMS/HCC) documented in this encounter Results * (ABNORMAL) CBC auto differential (05/11/2024 6:55 AM EST) [facility] WBC 7.2 4.8 - 10.8 K/mcL LAB HEMETOLOGY METHOD 05/11/2024 9:47 AM [facility] RBC 3.20(L) 4.50 - 5.50 M/mcL LAB HEMETOLOGY METHOD 05/11/2024 9:47 AM [facility] Hemoglobin 10.0(L) 13.5 - 17.5 g/dL LAB HEMETOLOGY METHOD 05/11/2024 9:47 AM [facility] Hematocrit 30.5(L) 42.0 - 54.0 % LAB HEMETOLOGY METHOD 05/11/2024 9:47 AM [facility] MCV 94.1 79.0 - 98.0 FL LAB HEMETOLOGY METHOD 05/11/2024 9:47 AM [facility] MCH 30.9 27.0 - 32.0 pcg LAB HEMETOLOGY METHOD 05/11/2024 9:47 AM [facility] MCHC 32.8 32.0 - 37.0 g/dL LAB HEMETOLOGY METHOD 05/11/2024 9:47 AM [facility] RDW 12.3 11.0 - 15.0 % LAB HEMETOLOGY METHOD 05/11/2024 9:47 AM [facility] Platelets 361 130 - 400 K/mcL LAB HEMETOLOGY METHOD 05/11/2024 9:47 AM [facility] MPV 10.2 7.0 - 11.0 FL LAB HEMETOLOGY METHOD 05/11/2024 9:47 AM [facility] NRBC 0.0 <1.0 % LAB HEMETOLOGY METHOD 05/11/2024 9:47 AM [facility] NRBC Absolute 0.00 <0.10 K/mcL LAB HEMETOLOGY METHOD 05/11/2024 9:47 AM [facility] Neutrophils Relative 68.9 % LAB HEMETOLOGY METHOD 05/11/2024 9:47 AM [facility] Lymphocytes Relative 19.2 % LAB HEMETOLOGY METHOD 05/11/2024 9:47 AM [facility] Monocytes Relative 5.7 % LAB HEMETOLOGY METHOD 05/11/2024 9:47 AM [facility] Eosinophils Relative 4.3 % LAB HEMETOLOGY METHOD 05/11/2024 9:47 AM [facility] Basophils Relative 1.3 % LAB HEMETOLOGY METHOD 05/11/2024 9:47 AM [facility] Immature Granulocytes Relative 0.6 % LAB HEMETOLOGY METHOD 05/11/2024 9:47 AM [facility] Neutrophils Absolute 4.97 1.50 - 7.00 K/mcL LAB HEMETOLOGY METHOD 05/11/2024 9:47 AM [facility] Lymphocytes Absolute 1.38 1.00 - 5.00 K/mcL LAB HEMETOLOGY METHOD 05/11/2024 9:47 AM [facility] Monocytes Absolute 0.41 0.20 - 1.00 K/mcL LAB HEMETOLOGY METHOD 05/11/2024 9:47 AM [facility] Eosinophils Absolute 0.31 0.00 - 0.50 K/mcL LAB HEMETOLOGY METHOD 05/11/2024 9:47 AM EST [facility] Basophils Absolute 0.09 0.00 - 0.20 K/[facility] LAB HEMETOLOGY METHOD 05/11/2024 9:47 AM EST [facility] Immature Granulocytes Absolute 0.04(H) 0.00 - 0.03 K/[facility] LAB HEMETOLOGY METHOD 05/11/2024 9:47 AM EST [facility] Blood Venous blood specimen / Unknown 05/11/2024 6:55 AM EST 05/11/2024 8:55 AM EST us Stefano Rudd MD LAB BLOOD ORDERABLES Final Resul t Performing Organization Address [facility] Co de Phone Number [facility] [address] [place] [address], [place] [phone] * Prostate specific antigen screen (05/11/2024 6:55 AM EST) PSA 0.08 0.00 - 4.00 ng/mL LAB CHEMISTRY METHOD 05/11/2024 11:33 AM EST [facility] Blood Venous blood specimen / Unknown 05/11/2024 6:55 AM EST 05/11/2024 8:55 AM EST Narrative [facility] - 05/11/2024 11:33 AM EST The Siemens Advia Centaur Chemiluminescent Immunoassay is used. Results obtained with different assay methods or kits cannot be used interchangeably. Results cannot be interpreted as absolute evidence of the presence or absence of malignant disease. us Stefano Rudd MD LAB BLOOD ORDERABLES Final Resul t Performing Organization Address City/[facility]/ZIP Co de Phone Number [facility] [address] [place] [address], [place] [phone] * Thyroid stimulating hormone (05/11/2024 6:55 AM EST) TSH 3.31 0.40 - 4.00 mcIU/mL LAB CHEMISTRY METHOD 05/11/2024 11:33 AM EST [facility] Blood Venous blood specimen / Unknown 05/11/2024 6:55 AM EST 05/11/2024 8:55 AM EST us Stefano Rudd MD LAB BLOOD ORDERABLES Final Resul t Performing Organization Address City/[facility]/ZIP Co de Phone Number [facility] [address] [place] [address], [place] [phone] * Hemoglobin A1c (05/11/2024 6:55 AM EST) Hemoglobin A1C 6.4 <6.5 % LAB CHEMISTRY METHOD 05/11/2024 12:45 PM EST [facility] Mean Bld Glu Estim. 137 mg/dL LAB CHEMISTRY METHOD 05/11/2024 12:45 PM EST [facility] Blood Venous blood specimen / Unknown 05/11/2024 6:55 AM EST 05/11/2024 8:55 AM EST us Stefano Rudd MD LAB BLOOD ORDERABLES Final Resul t Performing Organization Address [facility]/ZIP Co de Phone Number [facility] [address] [place] [address], [place] [phone] * Lipid panel with reflex to direct LDL (05/11/2024 6:55 AM EST) Cholesterol 173 0 - 200 mg/dL LAB CHEMISTRY METHOD 05/11/2024 9:47 AM EST [facility] Triglycerides 55 0 - 150 mg/dL LAB CHEMISTRY METHOD 05/11/2024 9:47 AM EST [facility] HDL 75 >=40 mg/dL LAB CHEMISTRY METHOD 05/11/2024 9:47 AM EST [facility] LDL Calculated 87 0 - 100 mg/dL LAB CHEMISTRY METHOD 05/11/2024 9:47 AM [facility] VLDL Cholesterol Abdoul 11 mg/dL LAB CHEMISTRY METHOD 05/11/2024 9:47 AM [facility] Non HDL Chol. (LDL+VLDL) 98 <145 mg/dL LAB CHEMISTRY METHOD 05/11/2024 9:47 AM [facility] Chol/HDL Ratio 2.3 0.0 - 4.4 LAB CHEMISTRY METHOD 05/11/2024 9:47 AM [facility] Blood Venous blood specimen / Unknown 05/11/2024 6:55 AM EST 05/11/2024 8:55 AM EST us Stefano Rudd MD LAB BLOOD ORDERABLES Final Resul t [facility] [address] [place] [address], * (ABNORMAL) Comprehensive metabolic panel (05/11/2024 6:55 AM EST) Sodium 136 133 - 145 mmol/L LAB CHEMISTRY METHOD 05/11/2024 9:54 AM [facility] Potassium 4.6 3.5 - 5.5 mmol/L LAB CHEMISTRY METHOD 05/11/2024 9:54 AM [facility] Chloride 104 96 - 110 mmol/L LAB CHEMISTRY METHOD 05/11/2024 9:54 AM [facility] CO2 24 21 - 32 mmol/L LAB CHEMISTRY METHOD 05/11/2024 9:54 AM [facility] Anion Gap 8 3 - 11 LAB CHEMISTRY METHOD 05/11/2024 9:54 AM [facility] Glucose 471(HH) 70 - 100 mg/dL LAB CHEMISTRY METHOD 05/11/2024 9:54 AM [facility] BUN 35(H) 5 - 25 mg/dL LAB CHEMISTRY METHOD 05/11/2024 9:54 AM [facility] Comment:Results verified by repeat testing Creatinine 1.31(H) 0.70 - 1.30 mg/dL LAB CHEMISTRY METHOD 05/11/2024 9:54 AM [facility] eGFR 64 >=60 mL/min/1. 73m2 LAB CHEMISTRY METHOD 05/11/2024 9:54 AM [facility] Comment:Calculation based on the??Chronic Kidney Disease Epidemiology Collaboration (CKD-EPI) equation refit??without adjustment for race. BUN/Creatinine Ratio 26.7 LAB CHEMISTRY METHOD 05/11/2024 9:54 AM [facility] Calcium 9.4 8.5 - 10.5 mg/dL LAB CHEMISTRY METHOD 05/11/2024 9:54 AM [facility] AST (SGOT) 14 10 - 42 unit/L LAB CHEMISTRY METHOD 05/11/2024 9:54 AM [facility] ALT (SGPT) 19 10 - 60 unit/L LAB CHEMISTRY METHOD 05/11/2024 9:54 AM [facility] Alkaline Phosphatase 125(H) 42 - 121 unit/L LAB CHEMISTRY METHOD 05/11/2024 9:54 AM [facility] Total Protein 6.2 6.0 - 8.0 g/dL LAB CHEMISTRY METHOD 05/11/2024 9:54 AM [facility] Albumin 3.2 3.2 - 5.0 g/dL LAB CHEMISTRY METHOD 05/11/2024 9:54 AM [facility] Total Bilirubin 0.3 0.0 - 1.4 mg/dL LAB CHEMISTRY METHOD 05/11/2024 9:54 AM [facility] Blood Venous blood specimen / Unknown 05/11/2024 6:55 AM EST 05/11/2024 8:55 AM EST us Stefano Rudd MD LAB BLOOD ORDERABLES Final Resul t [facility] [address] [place] [address], documented in this encounter Visit Diagnoses Diagnosis Hemiplegia and hemiparesis following cerebral infarction affecting left dominant side (CMS/HCC V24, CMS/HCC V28) documented in this encounter Care Teams Gang Miner Relationship Specialty Start Date End Date Stefano Rudd MD [address] [place], [place] PCP - General Internal Medicine 08/26/24 documented as of this encounter
--- OUTSIDE RECORDS SUMMARY | 2024-09-21 13:26 | XMS_ITS | Encounter Summary ---
Author Organization [facility] Address [address] [place] [address] Care Team Providers Care Open Shank Coverer Name Role Phone Stefano Rudd MD Primary Care Provider [phone] Encounter Details Date Type Department Care Team (Late st Contact Info) Description 08/27/2024 Lab Requisition [facility] - Main Lab [address] [place] [address] Stefano Rudd MD [address] [place] [address] [address] [place] Urinary tract infection, site not specified Social History Tobacco Use Types Packs/Day Years [...] EDT Urinary tract infection, site not specified documented in this encounter Results * (ABNORMAL) Urinalysis with reflex microscopic (08/27/2024 6:58 PM EDT) Specific [place] Urine 1.022 1.003 - 1.030 LAB URINALYSIS - AUTOMATED METHOD 08/27/2024 9:16 PM EDT [facility] pH, Urine 5.5 5.0 - 8.0 pH LAB URINALYSIS - AUTOMATED METHOD 08/27/2024 9:16 PM [facility] Leukocytes, Urine Moderate(A) Negative LAB URINALYSIS - AUTOMATED METHOD 08/27/2024 9:16 PM [facility] Nitrite, Urine Negative Negative LAB URINALYSIS - AUTOMATED METHOD 08/27/2024 9:16 PM [facility] Protein, Urine 30(A) <=Trace mg/dL LAB URINALYSIS - AUTOMATED METHOD 08/27/2024 9:16 PM [facility] Glucose, Urine 500(A) Negative mg/dL LAB URINALYSIS - AUTOMATED METHOD 08/27/2024 9:16 PM [facility] Ketones, Urine Negative Negative mg/dL LAB URINALYSIS - AUTOMATED METHOD 08/27/2024 9:16 PM [facility] Urobilinogen , Urine 1.0 0.2 - 1.0 mg/dL LAB URINALYSIS - AUTOMATED METHOD 08/27/2024 9:16 PM [facility] Bilirubin, Urine Negative Negative LAB URINALYSIS - AUTOMATED METHOD 08/27/2024 9:16 PM [facility] Blood, Urine Small(A) Negative LAB URINALYSIS - AUTOMATED METHOD 08/27/2024 9:16 PM [facility] RBC, Urine 10(H) 0 - 4 /HPF 08/27/2024 9:16 PM [facility] WBC, Urine >100(H) 0 - 4 /HPF 08/27/2024 9:16 PM [facility] Squamous Epithelial, Urine 2 0 - 60 /LPF 08/27/2024 9:16 PM [facility] Bacteria, Urine Negative Negative /HPF 08/27/2024 9:16 PM [facility] Hyaline Casts, Urine 0 0 - 3 /LPF 08/27/2024 9:16 PM EDT [facility] Yeast, Urine Present(A) None /HPF 08/27/2024 9:16 PM EDT [facility] Urine Urine specimen obtained by clean catch procedure / Unknown 08/27/2024 6:58 PM EDT 08/27/2024 8:54 PM EDT us Stefano Rudd MD LAB URINE ORDERABLES Final Resul t Performing Organization Address City/[facility]/ZIP Co de Phone Number [facility] [address] [place] [address], [place] [phone] * Thomas urine culture tube (08/27/2024 6:58 PM EDT) Extra Tube Hold for add-ons. 08/27/2024 10:03 PM EDT [facility] Comment:Auto resulted. Urine Urine specimen obtained by clean catch procedure / Unknown 08/27/2024 6:58 PM EDT 08/27/2024 8:54 PM EDT us Stefano Rudd MD LAB URINE ORDERABLES Final Resul t Performing Organization Address City/[facility] Co de Phone Number [facility] [address] [place] [address], [place] [phone] documented in this encounter Visit Diagnoses Diagnosis Urinary tract infection, site not specified documented in this encounter Care Teams Open Shank Coverer Relationship Specialty Start Date End Date Stefano Rudd MD [address] [place] [address] Dr [address] SHALA Abarca PCP - General Internal Medicine 08/26/24 documented as of this encounter
[2024-09-21 15:45] LABS: Appearance Urine Clear; Color Urine Yellow; Glucose Urine UA Negative (Negative); Leukocyte Esterase Urine Small (1+) (Negative); Nitrite Urine Negative (Negative); Specific Gravity - Urine 1.015 (1.005-1.025); UMIC TRIGGER UACC YES; Urine Blood Negative (Negative); Urine Ketones Negative (Negative); Urine Protein 100 (2+) mg/dL (Neg-Trace)
[2024-09-21 15:53] LABS: Bacteria Urine None Seen (None Seen); Hyaline Casts Urine 0-2 /LPF (0-2); RBC Urine 0-2 /HPF (0-2); Squamous Epithelial Cell Urine 0-2 /HPF (0-2); UACC Culture Trigger YES
--- NOTE | 2024-09-21 15:53 | PC.NURSE ---
no reflex/repeat lactic acid needed per provider as pt [facility].
[2024-09-21] MEDS: LORazepam 1 MG TABLET PO (15:54)
[2024-09-21 15:59] VITALS: BP 186/97; PULSE 79; RESP 18; TEMP 36.2; O2SAT 98
--- NOTE | 2024-09-21 16:07 | PC.NURSE ---
multiple attempts made at obtaining urine specimen via urinal. pt unable to - states he is having difficulty. pt noted to have distended abd. tender w/ palpation. straight catheterization performed - 900ml of dark yellow, non foul smelling urine noted immediately post output. specimen obtained/sent to lab. provider notified/aware of results. 16fr montoya catheter w/ 10ml balloon placed per provider order. 100ml of dark yellow, non foul smelling urine noted s/p indwelling catheter insertion. pt tolerated well. pt became increasingly anxious s/p insertions. provider notified/aware. medicated per provider order. effectiveness pending. pending transfer back to [facility] at this time.
--- NOTE | 2024-09-21 16:56 | PHA.MEDREC ---
Addendum entered by Radha Fontenot RPh 09/21/24 17:26: [facility] ED REVIEWED Original Note: Pharmacy Consult ? Medication Reconciliation Pharmacy has completed the medication reconciliation. Utilized list from [facility] to confirm med list[facility] Insulin aspart is 5 units at 7:30 am and 15 units at 4:30pm plus patient is on a sliding scale TID.
[2024-09-21 18:05] LABS: Glucose, Whole Blood 73 mg/dL (60-115)
[2024-09-21 18:38] LABS: Glucose, Whole Blood 103 mg/dL (60-115)
--- NOTE | 2024-09-21 18:48 | PC.NURSE ---
report given to RAMILA anthony at this time.
--- NOTE | 2024-09-21 18:55 | PC.NURSE ---
report given to VICTORINO Sadler at [facility] at this time.
[2024-09-21 18:56] VITALS: BP 186/97; PULSE 79; RESP 18; TEMP 36.2; O2SAT 98
== END 2024-09-21 18:57 ==
PROVIDERS: Physician Assistant Medical; Emergency Provider Emergency Medicine
DX: R41.82 Altered mental status, unspecified (principal); R33.9 Retention of urine, unspecified; Z03.818 Encounter for observation for suspected exposure to other biological agents ruled out
CPT/HCPCS: 0241U; 36415; 51702; 70450; 71045; 80053; 80307; 81001; 82140; 82550; 82947; 83605; 83735; 84443; 84484; 85025; 85610; 87040; 87086; 93005; 96361; 96374; 99285; J0696

== ENCOUNTER → 2024-09-21 09:42 | Outpatient (BNV) | payer MEDICAID, SELFPAY | PROVIDERS: Emergency Provider Emergency Medicine; Visit Provider Internal Medicine Cardiovascular Disease | DX: R00.0 Tachycardia, unspecified (principal) | CPT/HCPCS: 93010 ==

== ENCOUNTER → 2024-09-21 09:42 | Outpatient (BNV) | payer MEDICAID, SELFPAY | PROVIDERS: Emergency Provider Emergency Medicine; Visit Provider Radiology Diagnostic Radiology | DX: I67.82 Cerebral ischemia (principal); R90.82 White matter disease, unspecified; G93.89 Other specified disorders of brain; R41.82 Altered mental status, unspecified | CPT/HCPCS: 70450; 71045 ==

== ENCOUNTER 2024-10-12 08:43 | Outpatient (AMB) | payer MEDICAID, SELFPAY ==
--- NOTE | 2024-10-12 08:49 | A.OFFVIS_ITS ---
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 Resident of [facility]. Seen for the following urologic conditions - urinary retention Episode of urinary retention Elisabeth Placed on tamsulosin Passed voiding trial at [facility] facility Does have occasional constipation Recommend trial of finasteride Follow-up in 6 months with nurse-practitioner and PSA Review of Systems Const Denies chills and Denies fever(s) Card Reports no additional complaints and Denies syncope Resp Denies cough GI Denies abdominal pain and Denies heartburn Reports as per HPI and Denies change in libido Neuro Denies syncope Psych Denies change in libido Endo Denies change in libido Physical Exam Const General: cooperative, healthy appearing, comfortable and no acute distress Orientation/consciousness: patient oriented x3 HEENT Face and sinus: Yes normal facial exam Mouth: moist mucous membranes Neck Neck: Yes normal visual inspection, Yes full ROM and Yes trachea midline Chest Chest palpation & inspection: normal inspection of the chest Resp Effort & Inspection: normal respiratory effort, able to speak in complete sentences and no respiratory distress GI Inspection: Yes normal to inspection Back/Spine/Pelvis Cervical Spine: normal cervical lordosis Thoracic/Lumbar Spine: thoracic and lumbar spine normal to inspection Skin General skin exam: no rashes or lesions noted Neuro General: patient oriented x3, gait normal, tone normal and moves all extremities Extrem General: Yes normal to inspection and Yes capillary refill normal Assessment & Plan Assessment & Plan (1) Urinary retention with incomplete bladder emptying: Code(s): R33.9 - Retention of urine, unspecified Category: Medical Plan Patricio six-month Orders: Orders Prostate Specific Antigen 6 Months R33.9 - Retention of urine, unspecified Medications: New finasteride 5 mg PO DAILY 90 days 90 tabs 1RF R33.9 - Retention of urine, unspecified Patient Instructions: This note is constructed using voice recognition software. While every effort has been made to ensure accuracy business objects report developer errors may have been included. Imaging studies, laboratory and physical exam results were discussed and reviewed in detail. No major barriers to patient understanding were identified. An opportunity to ask questions regarding the treatment plan was provided. All questions were answered. The patient expressed understanding and agreement with the above treatment plan. The patient is aware they should contact our office by phone for worsening of their current condition or the appearance of new urologic symptoms. Compliance is encouraged with any medications and followup testing that is ordered. It is a privilege to participate in the urologic care of your patient. If you have any questions or concerns regarding treatment for the above conditions, or other urologic issues, please do not hesitate to contact me. The office telephone contact is [phone]. Sincerely, Dr Ciro Galloway MD, [facility] - Urology Compassionate Specialist Care for the Genitourinary System Coding Level of Care Code New Pt Level 4 (79197) Complex EM visit Add On G2211 Diagnoses Urinary retention with incomplete bladder emptying R33.9
--- OUTSIDE RECORDS SUMMARY | 2024-10-12 09:04 | XMS_ITS | Encounter Summary ---
Author Organization [facility] Address [address] [address] Phone Care Team Providers Care Counter Checker Name Role Phone Unavailable Primary Care Provider Unavailabl e Reason for Referral * Imaging (Routine) - Closed Specialty Diagnoses / Procedures Referred By Contac t Referred To Contact Diagnoses Stage 3a chronic kidney disease (HCC) Renal osteodystrophy Procedures Ultrasound renal limited Shayne Najera MD [address] [address] Phone: tel: fax: Referral ID Status Reason Start Date Expiration Date Visits Re quested Visits Authorized [id number] Closed 10/07/2024 10/07/2025 1 1 Encounter Details Date Type Department Care Team (Late st Contact Info) Description 10/07/2024 11:15 AM EDT Office Visit [facility] [address] [address] Shayne Najera MD [address] [address] Stage 3a chronic kidney disease (HCC) (Primary Dx); Renal osteodystrophy; 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) Social History Tobacco Use Types Packs/Day Years Used Date Smoking Tobacco: Never Assessed Sex and Gender Information Value Date Recorded Sex Assigned at Not on file Legal Sex Male 9:21 AM EDT Gender Identity Not on file Sexual Orientation Not on file documented as of this encounter Last Filed Vital Signs Vital Sign Reading Time Taken Comments Blood Pressure 145/72 10/07/2024 11:25 AM EDT Pulse 66 10/07/2024 11:25 AM EDT Temperature - - Respiratory Rate - - Oxygen Saturation 98% 10/07/2024 11:25 AM EDT Inhaled Oxygen Concentration - - Weight 90.7 kg (200 lb) 10/07/2024 11:25 AM EDT Height - - Body Mass Index - - documented in this encounter Patient Instructions * Patient Instructions* Shayne Najera MD - 10/07/2024 11:15 AM EDT Sodium and Your CKD Diet: How to Spice Up Your Cooking What is sodium? Sodium is a mineral found naturally in foods and is the major part of table salt. What are the effects of eating too much sodium? When your kidneys are not healthy, extra sodium and fluid build up in your body. This can cause swollen ankles, puffiness, a rise in blood pressure, shortness of breath, and/or fluid around your heart and lungs. See the following table for suggestions on how to reduce sodium in your diet. LIMIT THE [AMOUNT OF... FOOD TO LIMIT BECAUSE OF THEIR HIGH SODIUM CONTENT ACCEPTABLE SUBSTITUTES SALT & SALT SEASONINGS Table salt Seasoning salt Garlic salt Onion salt Celery salt Lemon pepper Lite salt Meat tenderizer Bouillon cubes Flavor enhancers Fresh garlic, fresh onion, garlic powder, onion powder, black [pepper, lemon juice, low-sodium/salt-free seasoning blends, vinegar SALTY FOODS Barbecue sauce Steak sauce Soy sauce Teriaky sauce Oyster sauce Salted Snacks such as Crackers Potato chips Yawkey chips Pretzels Tortilla chips Nuts Popcorn Amador seeds Homemade or low- sodium sauces and salad dressings; Vinegar, dry mustard, unsalted popcorn, pretzels, tortilla or corn chips Cured Foods Ham Salt pork [place] Sauerkraut Pickles, pickle relish Lox & [place] Olives Fresh beef, veal, pork, poultry, fish, eggs [place] [employer] Hot Dogs Cold cuts, deli meats Pastrami Sausage Corned beef Spam Low-salt deli meats PROCESSED FOODS Buttermilk Cheese Canned: Soups Tomato products Vegetable juices Canned vegetables Convenience Foods such as: TV Dinners Canned raviolis Cardinal Macaroni & Cheese Spaghetti Frozen prepared foods Fast foods Natural cheese (1-2 oz Per week) Homemade or rosemary,1- sodium soups, canned food without added salt Homemade casseroles without added salt, made with fresh or raw vegetables, fresh meat, elizabeth, pasta, or unsalted canned vegetables Some salt or sodium is needed for body water balance. But when your kidneys lose the ability to control sodium and water balance, you may experience the following: thirst fluid gain high blood pressure discomfort during dialysis By using less sodium in your diet, you can control these problems. Hints to keep your sodium intake down Cook with herbs and spices instead of salt. (Refer to Spice Up Your Cooking section for further suggestions.) Read food labels and choose those foods low in sodium. Avoid salt substitutes and specialty low-sodium foods made with salt substitutes because they are high in potassium. When eating out, ask for meat or fish without salt. Ask for gravy or sauce on the side; these may contain large amounts of salt and should be used in small amounts . Limit use of canned, processed and frozen foods. Some information about reading labels Understanding the terms: Sodium Free - Only a trivial amount of sodium per serving. Very Low Sodium - 35 mg or less per serving. Low Sodium - 140 mg or less per serving. Reduced Sodium - Foods in which the level of sodium is reduced by 25%. Light or Lite in Sodium - Foods in which the sodium is reduced by at least 50% . Simple rule of thumb : If salt is listed in the first five ingredients, the item is probably too high in sodium to use. All food labels now have milligrams (mg) of sodium listed. Follow these steps when reading the sodiwn information on the label: 1. Know how much sodium you are allowed each day. Remember that there are 1000 milligrams (mg) in 1gram. For [id number], if your diet prescription is 2 grams of sodium , your limit is 2000 milligrams per day. Consider the sodium value or other food to be eaten during the day. 2. Look at the package label. Check the serving size. Nutrition values are expressed per fercho g. How does this compare to your total daily allowance? If the sodium level is 500 mg or more per serving, the item is not a good choice. 3. Compare labels of similar products. Select the lowest sodium level for the same serving size. How to Spice Up Your Cooking Giving up salt does not mean giving up flavor. Learn to season your food with herbs and spices. Be creative and experiment for a new and exciting flavor. What kinds of spices and herbs should I use instead of salt to add flavor? Try the following spices with the foods listed. Allspice: Use with beef, fish, beets, cabbage, canots, peas, fruit. Basil: Use with beef, pork, most vegetables. [place]: Use with beef, pork, most vegetables. Hal: Use with beef, pork, green beans, cauliflower, cabbage, beets, asparagus, and in dips and marinades. Cardamom: Use with fruit and in baked goods. Ramírez: Use with beef, chicken, pork, fish, green beans, carrots and in marinades. Dill: Use with beef, chicken, green beans, cabbage, carrots, peas and in dips. Elsy: Use with beef, chicken, pork, green beans, cauliflower and eggplant. Marjoram: Use with beef, chicken, pork, green beans, cauliflower and eggplant. [place]: Use with chicken, pork, cauliflower, peas and in marinades. Thyme: Use with beef, chicken, pork, fish, green beans, beets and carrots. Nghia: Use with chicken, pork, eggplant and in dressing. Tarragon: Use with fish, chicken, asparagus, beets, cabbage, cauliflower and in marinades. Tips for cooking with herbs and spices Purchase spices and herbs in small amounts . When they sit on the shelf for years they lose their flavor. Use no more than ?? teaspoon of dried spice (?? of fresh) per pound of meat. Add ground spices to food about 15 minutes before the end of the cooking period. Add whole spices to food at least one hour before the end of the cooking period. Combine herbs with oil or butter, set for 30 minutes to bring out their flavor, then brush on foodswhile they cook, or brush meat with oil and sprinkle herbs one hour before coolcing. Crush dried herbs before adding to foods. Can I use salt substitutes? Caution! If you are told to limit potassium in your diet, be very cautious about using salt substitutes because most of them contain some form of potassium. Check with your doctor or dietitian beforeusing and salt substitute. [place] and create your own seasoning containing those spices that you like. If you would like to become a volunteer and find out more about what's happening where you live, contact your local [facility] Affiliate. No NSAIDS - Do not take non-steroidal anti-inflammatory medications (NSAIDS) such as Ibuprofen (Advil, Motrin, etc), Naproxen (Aleve, etc), Celecoxib (Celebrex) or Ketoprofen. These common arthritis medications can cause permanent kidney damage or worsen your kidney damage. For mild occasional pain, Acetaminophen (Tylenol, etc) is safe for your kidneys. Blood pressure monitoring education: Monitor home blood pressure values after sitting for 5 minutes with back and arm support. Keep a log. Bring your log and blood pressure cuff to your next visit. documented in this encounter Progress Notes * Shayne Najera MD - 10/07/2024 11:15 AM EDT Images from the original note were not included. Patient Name: Jonathan Mckeon, Male Date of : 1965, 58 y.o. Date: 10/07/2024 [x] New Patient [] Established Patient [] New Hospital Follow Up [] Established Hospital Follow Up [] Telemed Visit [] H&P Referring MD: No primary care provider on file. PCP: No primary care provider on file. Reason For Visit: CKD 3, DM, HTN Jonathan Mckeon is a 58 y.o. male seen today as new PT eval for CkD. PT is poor historian and infoobtained from info provided from [facility] ( [facility]). H/O R CVA w L sided weakness/wheelchair. H/O Dm and HTN Noted Scr 0.96 back in 04/2024 and repeat now 1.3 Jeff POE. No use of NSAIDs Meds as noted--need to update and complete list of meds. ROS limited as PT unable to provide complete info The following portions of the patient's chart were reviewed in this encounter and updated as appropriate: Meds ROS Full 13 point review of systems unremarkable except as noted above. Past Medical History: Diagnosis Date Chronic kidney disease Chronic viral hepatitis C (HCC) Diabetes mellitus without mention of complication, type II or unspecified type, not stated as uncontrolled (HCC) Esophageal reflux Hyperglycemia Other and unspecified hyperlipidemia No past surgical history on file. Social History Tobacco Use Smoking status: Not on file Smokeless tobacco: Not on file Substance Use Topics Alcohol use: Not on file No family history on file. Current Outpatient Medications Medication Sig Dispense Refill acetaminophen (TYLENOL) 325 MG suppository Insert 325 mg into the rectum every 4 (four) hours if needed for mild pain Albuterol Sulfate 108 (90 Base) MCG/ACT aerosol powder Inhale apixaban (ELIQUIS) 2.5 MG tablet Take 5 mg by mouth in the morning and 5 mg in the evening. ascorbic acid (VITAMIN C) 250 MG tablet Take 250 mg by mouth 1 (one) time each day atorvastatin (LIPITOR) 40 MG tablet Take 40 mg by mouth 1 (one) time each day baclofen (LIORESAL) 10 MG tablet Take 10 mg by mouth in the morning and 10 mg in the evening and 10mg before bedtime. DULoxetine HCl 40 MG capsule delayed-release particles Take by mouth No current facility-administered medications for this visit. Allergies Allergen Reactions Penicillins Objective: Vitals: 10/07/24 1125 BP: 145/72 Pulse: 66 SpO2: 98% Weight: 200 lb (90.7 kg) 134/72 Vitals reviewed. Constitutional: He does not appear ill. HEENT: Right Ear: Hearing normal. Left Ear: Hearing normal. Nose: Nose normal. Mouth/Throat: Oropharynx is clear and moist. Eyes: Conjunctivae are normal. Pupils are equal, round, and reactive to light. No scleral icterus. Neck: No thyroid mass and no thyromegaly present. Cardiovascular: Normal rate and regular rhythm. Exam reveals no friction rub. No murmur heard.He exhibits no edema. Pulmonary/Chest: Effort normal and breath sounds normal. No respiratory distress. He has no wheezes. He has no rales. Abdominal: Soft. There is no abdominal tenderness. No hernia. Musculoskeletal: Normal range of motion. He exhibits no deformity. Skin: Skin is warm and dry. No rash noted. No erythema. Psychiatric: He has a normal mood and affect. His behavior is normal. Judgment normal. L sied hemiparesis No results found for: EGFRAFR eGFR Non-Afr Malagasy Date Value Ref Range Status 09/21/2024 55 Final Chemistry Lab Units 09/21/24 0000 05/11/24 0655 04/13/24 0840 CREATININE mg/dL 1.35* 1.31* 0.96 BUN mg/dL 29* 35* 15 BUN / CREAT RATIO -- 26.7 15.6 EGFRNAFR 55 -- -- GLUCOSE 134 471* 76 POTASSIUM 4.0 4.6 4.4 SODIUM 143 136 139 CO2 mmol/L 22 24 28 CHLORIDE 111.0* 104 105 ALBUMIN g/dL 4.2 3.2 3.4 BILIRUBIN TOTAL MG/DL 0.30 0.3 0.2 AST U/L 24 14 21 ALT U/L 18 -- -- Bone Mineral Lab Units 09/21/24 0000 05/11/24 0655 04/13/24 0840 CALCIUM mg/dL 9.7 9.4 9.8 ALK PHOS unit/L -- 125* 125* MAGNESIUM 2.0 -- -- CBC Lab Units 09/21/24 0000 WBC AUTO 10*3/ML 15.4* MCV 88.4 HEMATOCRIT 37.2* HEMOGLOBIN 12.6* PLATELETS AUTO 10*3/UL 310 No lab exists for component: SPECGRAV , GLUCOSEUR , BILIRUBINUR , RBCUR , UPROTEIN , LEUKOCYTESUR , NITRITE PLAN: Assessment & Plan 1. Stage 3a chronic kidney disease (HCC) 2. Renal osteodystrophy 3. 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) 58 Y/O STAGE 3 CKD DM/HTN PATIENT CKD 3a: most c/w DM/HTN renal dis but need to r/o other causes wioth sero./urine studeis and renal u/s DM: ques TI vs T2DM; if hte latter then he would be a candidate for SGLT2i HTN: suboptiaml controlled; goal 120/80; need to track and get update as to his current meds PLAN: proceed with sero.urine studies and renal u/s; and get full records re: meds and prior med history Orders Placed This Encounter Ultrasound renal limited PTH, Intact Renal Function Panel Urinalysis with microscopic Urine Albumin / Creatinine Ratio Protein, Total, Random Urine w/Creatinine (Protein/Creat Ratio) Vitamin D 25 Hydroxy CBC Phosphorus Magnesium Albumin Calcium Protein electrophoresis, serum [place]/Lambda free LT chains w/ratio, Serum Hepatitis B Surface Antibody Hepatitis B Surface Antigen Hepatitis C antibody Hepatitis B core antibody, IgM WINSOME Panel C3 Complement C4 Complement Return in about 7 weeks (around 11/25/2024). Shayne Najera MD documented in this encounter Plan of Treatment Upcoming Encounters Date Type Department Care Team (Late st Contact Info) Description 11/24/2024 11:00 AM EDT Office Visit [facility] [address] [address] Felicitas Nunez ARNP [address] [phone] Scheduled Orders Name Type Priority Associated Diagnoses Orde r Schedule PTH, Intact Lab Routine Stage 3a chronic kidney disease (HCC) Renal osteodystrophy Expected: 10/07/2024, Expires: 11/07/2025 Renal Function Panel Lab Routine Stage 3a chronic kidney disease (HCC) Renal osteodystrophy Expected: 10/07/2024, Expires: 11/07/2025 Urinalysis with microscopic Lab Routine Stage 3a chronic kidney disease (HCC) Renal osteodystrophy Expected: 10/07/2024, Expires: 11/07/2025 Urine Albumin / Creatinine Ratio Lab Routine Stage 3a chronic kidney disease (HCC) Renal osteodystrophy Expected: 10/07/2024, Expires: 11/07/2025 Protein, Total, Random Urine w/Creatinine (Protein/Creat Ratio) Lab Routine Stage 3a chronic kidney disease (HCC) Renal osteodystrophy Expected: 10/07/2024, Expires: 11/07/2025 Vitamin D 25 Hydroxy Lab Routine Stage 3a chronic kidney disease (HCC) Renal osteodystrophy Expected: 10/07/2024, Expires: 11/07/2025 CBC Lab Routine Stage 3a chronic kidney disease (HCC) Renal osteodystrophy Expected: 10/07/2024, Expires: 11/07/2025 Phosphorus Lab Routine Stage 3a chronic kidney disease (HCC) Renal osteodystrophy Expected: 10/07/2024, Expires: 11/07/2025 Magnesium Lab Routine Stage 3a chronic kidney disease (HCC) Renal osteodystrophy Expected: 10/07/2024, Expires: 11/07/2025 Albumin Lab Routine Stage 3a chronic kidney disease (HCC) Renal osteodystrophy Expected: 10/07/2024, Expires: 11/07/2025 Calcium Lab Routine Stage 3a chronic kidney disease (HCC) Renal osteodystrophy Expected: 10/07/2024, Expires: 11/07/2025 Protein electrophoresis, serum Lab Routine Stage 3a chronic kidney disease (HCC) Renal osteodystrophy Expected: 10/07/2024, Expires: 11/07/2025 [place]/Lambda free LT chains w/ratio, Serum Lab Routine Stage 3a chronic kidney disease (HCC) Renal osteodystrophy Expected: 10/07/2024, Expires: 11/07/2025 Hepatitis B Surface Antibody Lab Routine Stage 3a chronic kidney disease (HCC) Renal osteodystrophy Expected: 10/07/2024, Expires: 11/07/2025 Hepatitis B Surface Antigen Lab Routine Stage 3a chronic kidney disease (HCC) Renal osteodystrophy Expected: 10/07/2024, Expires: 11/07/2025 Hepatitis C antibody Lab Routine Stage 3a chronic kidney disease (HCC) Renal osteodystrophy Expected: 10/07/2024, Expires: 11/07/2025 Hepatitis B core antibody, IgM Lab Routine Stage 3a chronic kidney disease (HCC) Renal osteodystrophy Expected: 10/07/2024, Expires: 11/07/2025 WINSOME Panel Lab Routine Stage 3a chronic kidney disease (HCC) Renal osteodystrophy Expected: 10/07/2024, Expires: 11/07/2025 C3 Complement Lab Routine Stage 3a chronic kidney disease (HCC) Renal osteodystrophy Expected: 10/07/2024, Expires: 11/07/2025 C4 Complement Lab Routine Stage 3a chronic kidney disease (HCC) Renal osteodystrophy Expected: 10/07/2024, Expires: 11/07/2025 Ultrasound renal limited Imaging Routine Stage 3a chronic kidney disease (HCC) Renal osteodystrophy Expected: 10/07/2024, Expires: 10/07/2025 documented as of this encounter Procedures Procedure Name Priority Date/Time Associated Diagnosis Comments EXT RESULT ENTRY Routine 09/21/2024 documented in this encounter Results * (ABNORMAL) EXT RESULT ENTRY (09/21/2024) WBC 15.4(A) 3.3 - 10.0 10*3/ML Red Blood Cell Count 4.21 Hemoglobin 12.6(A) 13.5 - 17.5 Hematocrit 37.2(A) 41.0 - 53.0 Platelets 310 150 - 399 10*3/UL MCV 88.4 82.0 - 108.0 Protime 13.3 10.0 - 13.8 INR 1.10 0.90 - 1.10 Sodium 143 137 - 147 Potassium 4.0 3.4 - 5.5 Chloride 111.0(A) 99.0 - 108.0 Carbon Dioxide 22 mmol/L Anion Gap 14 <=30 MMOL/L Glucose 134 60 - 200 BUN 29(A) 4 - 21 mg/dL Creatinine 1.35(A) 0.60 - 1.30 mg/dL Total Protein 7.1 6.4 - 8.2 G/DL Albumin 4.2 3.5 - 5.0 g/dL Calcium 9.7 8.7 - 10.7 mg/dL eGFR Non-Afr Malagasy 55 Magnesium 2.0 1.6 - 2.4 Total Bilirubin 0.30 MG/DL ALT (SGPT) 18 U/L AST (SGOT) 24 U/L 09/21/2024 Historical Provider LAB BLOOD ORDERABLES Lissett l Result documented in this encounter Visit Diagnoses Diagnosis Stage 3a chronic kidney disease (HCC)- Primary Renal osteodystrophy 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
--- OUTSIDE RECORDS SUMMARY | 2024-10-12 09:04 | XMS_ITS | Encounter Summary ---
Author Organization [facility] Address [address] [place] [address] Care Team Providers Care Copy Editor Name Role Phone Stefano Rudd MD Primary Care Provider [phone] Encounter Details Date Type Department Care Team (Late st Contact Info) Description 08/10/2024 Lab Requisition [facility] - Main Lab [address] [place] [address] Stefano Rudd MD [address] [place] [address] [address] [place] Bipolar disorder, unspecified (CMS/HCC V24, CMS/[facility] V28) Social History Tobacco Use Types Packs/Day [...] 08/10/2024 6:32 AM EST Bipolar disorder, unspecified ([facility]) documented in this encounter Results * (ABNORMAL) Hemoglobin A1c (08/10/2024 6:32 AM EST) Hemoglobin A1C 7.9(H) <6.5 % LAB CHEMISTRY METHOD 08/10/2024 11:00 AM EST [facility] Mean Bld Glu Estim. 180 mg/dL LAB CHEMISTRY METHOD 08/10/2024 11:00 AM EST [facility] Blood Venous blood specimen / Unknown 08/10/2024 6:32 AM EST 08/10/2024 7:49 AM EST us Stefano Rudd MD LAB BLOOD ORDERABLES Final Resul t [facility] [address] [place] [address], documented in this encounter Visit Diagnoses Diagnosis Bipolar disorder, unspecified (CMS/[facility] V24, CMS/HCC V28) Bipolar disorder, unspecified documented in this encounter Care Teams Copy Editor Relationship Specialty Start Date End Date Stefano Rudd MD [address] [place] [address] Dr [address] [place], [place] PCP - General Internal Medicine 08/26/24 documented as of this encounter
--- OUTSIDE RECORDS SUMMARY | 2024-10-12 09:04 | XMS_ITS | Encounter Summary ---
Author Organization [facility] Address [address] [place] [address] Care Team Providers Care Senior It Business Analyst Name Role Phone Stefano Rudd MD Primary Care Provider [phone] Encounter Details Date Type Department Care Team (Late st Contact Info) Description 08/26/2024 Lab Requisition [facility] - Main Lab [address] [facility] [place] [address] Stefano Rudd MD [address] [place] [address] [address] [place] Type 1 diabetes mellitus with diabetic polyneuropathy [...] Type 1 diabetes mellitus with diabetic polyneuropathy ([facility]/HCC) HEMOGLOBIN A1C Routine 08/26/2024 7:09 AM EDT Type 1 diabetes mellitus with diabetic polyneuropathy ([facility]) documented in this encounter Results * (ABNORMAL) Hemoglobin A1c (08/26/2024 7:09 AM EDT) Hemoglobin A1C 7.4(H) <6.5 % LAB CHEMISTRY METHOD 08/26/2024 8:[address] [facility] Mean Bld Glu Estim. 166 mg/dL LAB CHEMISTRY METHOD 08/26/2024 8:[address] [facility] Blood Venous blood specimen / Unknown 08/26/2024 7:09 AM EDT 08/26/2024 7:44 AM EDT us Stefano Rudd MD LAB BLOOD ORDERABLES Final Resul t [facility] [address] [place] [address], [place] [phone] * (ABNORMAL) Complete blood count (08/26/2024 7:09 AM EDT) [facility] WBC 5.6 4.8 - 10.8 K/mcL LAB HEMETOLOGY METHOD 08/26/2024 8:[address] [facility] RBC 3.80(L) 4.50 - 5.50 M/mcL LAB HEMETOLOGY METHOD [facility] Hemoglobin 11.1(L) 13.5 - 17.5 g/dL LAB HEMETOLOGY METHOD 08/26/2024 8:02 AM [facility] Hematocrit 33.9(L) 42.0 - 54.0 % LAB HEMETOLOGY METHOD 08/26/2024 8:02 AM [facility] MCV 90.2 79.0 - 98.0 FL LAB HEMETOLOGY METHOD 08/26[facility]2024 [facility] MCH 29.5 27.0 - 32.0 pcg LAB HEMETOLOGY METHOD 08/26/2024 8:02 AM [facility] MCHC 32.7 32.0 - 37.0 g/dL LAB HEMETOLOGY METHOD 08/26/2024 8:02 AM [facility] RDW 13.4 11.0 - 15.0 % LAB HEMETOLOGY METHOD 08/26/2024 8:02 AM [facility] Platelets 231 130 - 400 K/mcL LAB HEMETOLOGY METHOD 08/26/2024 8:[address] [facility] MPV 10.2 7.0 - 11.0 FL LAB HEMETOLOGY METHOD 08/26/2024 8:[address] [facility] NRBC 0.0 <1.0 % LAB HEMETOLOGY METHOD 08/26/2024 8:[address] [facility] NRBC Absolute 0.00 <0.10 K/mcL LAB HEMETOLOGY METHOD 08/26/2024 8:[address] [facility] Blood Venous blood specimen / Unknown 08/26/2024 7:09 AM EDT 08/26/2024 7:44 AM EDT us Stefano Rudd MD LAB BLOOD ORDERABLES Final Resul t [facility] [address] [place] [address], documented in this encounter Visit Diagnoses Diagnosis Type 1 diabetes mellitus with diabetic polyneuropathy (CMS/HCC V24, CMS/HCC V28) documented in this encounter Care Teams Senior It Business Analyst Relationship Specialty Start Date End Date Stefano Rudd MD [address] [place] [address] Dr [address] [place], [place] PCP - General Internal Medicine 08/26/24 documented as of this encounter
--- OUTSIDE RECORDS SUMMARY | 2024-10-12 09:04 | XMS_ITS | Encounter Summary ---
Author Organization [employer] Address [address] [place] [address] Care Team Providers Care Order Make Up Clerk Name Role Phone Stefano Rudd MD Primary Care Provider Encounter Details Date Type Department Care Team (Late st Contact Info) Description 05/11/2024 Lab Requisition [facility] - Main Lab [address] [facility] [employer] [place] [address] Stefano Rudd MD [address] [place] [address] Dr [address] SHALA Abarca Hemiplegia and [...] CBC auto differential (05/11/2024 6:55 AM EST) [facility] WBC 7.2 4.8 - 10.8 K/mcL LAB HEMETOLOGY METHOD 05/11/2024 9:[address] [facility] RBC 3.20(L) 4.50 - 5.50 M/mcL LAB HEMETOLOGY METHOD 05/11/2024 9:[address] [facility] Hemoglobin 10.0(L) 13.5 - 17.5 g/dL LAB HEMETOLOGY METHOD 05/11/2024 9:[address] [facility] Hematocrit 30.5(L) 42.0 - 54.0 % LAB HEMETOLOGY METHOD 05/11/2024 9:[address] [facility] MCV 94.1 79.0 - 98.0 FL LAB HEMETOLOGY METHOD 05/11/2024 9:[address] [facility] MCH 30.9 27.0 - 32.0 pcg LAB HEMETOLOGY METHOD 05/11/2024 9:[address] [facility] MCHC 32.8 32.0 - 37.0 g/dL LAB HEMETOLOGY METHOD 05/11/2024 9:[address] [facility] RDW 12.3 11.0 - 15.0 % LAB HEMETOLOGY METHOD 05/11/2024 9:[address] [facility] Platelets 361 130 - 400 K/mcL LAB HEMETOLOGY METHOD 05/11/2024 9:[address] [facility] MPV 10.2 7.0 - 11.0 FL LAB HEMETOLOGY METHOD 05/11/2024 9:[address] [facility] NRBC 0.0 <1.0 % LAB HEMETOLOGY METHOD 05/11/2024 9:[address] [facility] NRBC Absolute 0.00 <0.10 K/mcL LAB HEMETOLOGY METHOD 05/11/2024 9:[address] [facility] Neutrophils Relative 68.9 % LAB HEMETOLOGY METHOD 05/11/2024 9:[address] [facility] Lymphocytes Relative 19.2 % LAB HEMETOLOGY METHOD 05/11/2024 9:[address] [facility] Monocytes Relative 5.7 % LAB HEMETOLOGY METHOD 05/11/2024 9:[address] [facility] Eosinophils Relative 4.3 % LAB HEMETOLOGY METHOD 05/11/2024 9:[address] [facility] Basophils Relative 1.3 % LAB HEMETOLOGY METHOD 05/11/2024 9:[address] [facility] Immature Granulocytes Relative 0.6 % LAB HEMETOLOGY METHOD 05/11/2024 9:[address] [facility] Neutrophils Absolute 4.97 1.50 - 7.00 K/mcL LAB HEMETOLOGY METHOD 05/11/2024 9:[address] [facility] Lymphocytes Absolute 1.38 1.00 - 5.00 K/mcL LAB HEMETOLOGY METHOD 05/11/2024 9:[address] [facility] Monocytes Absolute 0.41 0.20 - 1.00 K/mcL LAB HEMETOLOGY METHOD 05/11/2024 9:[address] [facility] Eosinophils Absolute 0.31 0.00 - 0.50 K/mcL LAB HEMETOLOGY METHOD 05/11/2024 9:[address] [facility] Basophils Absolute 0.09 0.00 - 0.20 K/[facility] LAB HEMETOLOGY METHOD 05/11/2024 9:[address] [facility] Immature Granulocytes Absolute 0.04(H) 0.00 - 0.03 K/[facility] LAB HEMETOLOGY METHOD 05/11/2024 9:[address] [facility] Blood Venous blood specimen / Unknown 05/11/2024 6:55 AM EST 05/11/2024 8:55 AM EST us Stefano Rudd MD LAB BLOOD ORDERABLES Final Resul t Performing Organization Address [facility] Co de Phone Number [facility] [address] [place] [address], [place] [phone] * Prostate specific antigen screen (05/11/2024 6:55 AM EST) PSA 0.08 0.00 - 4.00 ng/mL LAB CHEMISTRY METHOD 05/11/2024 11:[address] [facility] Blood Venous blood specimen / Unknown 05/11/2024 6:55 AM EST 05/11/2024 8:[address] [facility] - 05/11/2024 11:33 AM EST The Siemens Advia Centaur Chemiluminescent Immunoassay is used. Results obtained with different assay methods or kits cannot be used interchangeably. Results cannot be interpreted as absolute evidence of the presence or absence of malignant disease. us Stefano Rudd MD LAB BLOOD ORDERABLES Final Resul t Performing Organization Address City/[facility]/ZIP Co de Phone Number [facility] [address] [place] [address], [place] [phone] * Thyroid stimulating hormone (05/11/2024 6:55 AM EST) TSH 3.31 0.40 - 4.00 mcIU/mL LAB CHEMISTRY METHOD 05/11/2024 11:[address] [facility] Blood Venous blood specimen / Unknown 05/11/2024 6:55 AM EST 05/11/2024 8:55 AM EST us Stefano Rudd MD LAB BLOOD ORDERABLES Final Resul t Performing Organization Address City/[facility]/ZIP Co de Phone Number [facility] [address] [place] [address], [place] [phone] * Hemoglobin A1c (05/11/2024 6:55 AM EST) Hemoglobin A1C 6.4 <6.5 % LAB CHEMISTRY METHOD 05/11/2024 12:[address] [facility] Mean Bld Glu Estim. 137 mg/dL LAB CHEMISTRY METHOD 05/11/2024 12:[address] [facility] Blood Venous blood specimen / Unknown 05/11/2024 6:55 AM EST 05/11/2024 8:55 AM EST us Stefano Rudd MD LAB BLOOD ORDERABLES Final Resul t Performing Organization Address [facility]/ZIP Co de Phone Number [facility] [address] [place] [address], [place] [phone] * Lipid panel with reflex to direct LDL (05/11/2024 6:55 AM EST) Cholesterol 173 0 - 200 mg/dL LAB CHEMISTRY METHOD 05/11/2024 9:[address] [facility] Triglycerides 55 0 - 150 mg/dL LAB CHEMISTRY METHOD 05/11/2024 9:[address] [facility] HDL 75 >=40 mg/dL LAB CHEMISTRY METHOD 05/11/2024 9:[address] [facility] LDL Calculated 87 0 - 100 mg/dL LAB CHEMISTRY METHOD 05/11/2024 9:[address] [facility] VLDL Cholesterol Abdoul 11 mg/dL LAB CHEMISTRY METHOD 05/11/2024 9:[address] [facility] Non HDL Chol. (LDL+VLDL) 98 <145 mg/dL LAB CHEMISTRY METHOD 05/11/2024 9:[address] [facility] Chol/HDL Ratio 2.3 0.0 - 4.4 LAB CHEMISTRY METHOD 05/11/2024 9:[address] [facility] Blood Venous blood specimen / Unknown 05/11/2024 6:55 AM EST 05/11/2024 8:55 AM EST us Stefano Rudd MD LAB BLOOD ORDERABLES Final Resul t [facility] [address] [place] [address], * (ABNORMAL) Comprehensive metabolic panel (05/11/2024 6:55 AM EST) Sodium 136 133 - 145 mmol/L LAB CHEMISTRY METHOD 05/11/2024 9:[address] [facility] Potassium 4.6 3.5 - 5.5 mmol/L LAB CHEMISTRY METHOD 05/11/2024 9:[address] [facility] Chloride 104 96 - 110 mmol/L LAB CHEMISTRY METHOD 05/11/2024 9:[address] [facility] CO2 24 21 - 32 mmol/L LAB CHEMISTRY METHOD 05/11/2024 9:[address] [facility] Anion Gap 8 3 - 11 LAB CHEMISTRY METHOD 05/11/2024 9:[address] [facility] Glucose 471(HH) 70 - 100 mg/dL LAB CHEMISTRY METHOD 05/11/2024 9:[address] [facility] BUN 35(H) 5 - 25 mg/dL LAB CHEMISTRY METHOD 05/11/2024 9:[address] [facility] Comment:Results verified by repeat testing Creatinine 1.31(H) 0.70 - 1.30 mg/dL LAB CHEMISTRY METHOD 05/11/2024 9:[address] [facility] eGFR 64 >=60 mL/min/1. 73m2 LAB CHEMISTRY METHOD 05/11/2024 9:[address] [facility] Comment:Calculation based on the??Chronic Kidney Disease Epidemiology Collaboration (CKD-EPI) equation refit??without adjustment for race. BUN/Creatinine Ratio 26.7 LAB CHEMISTRY METHOD 05/11/2024 9:[address] [facility] Calcium 9.4 8.5 - 10.5 mg/dL LAB CHEMISTRY METHOD 05/11/2024 9:[address] [facility] AST (SGOT) 14 10 - 42 unit/L LAB CHEMISTRY METHOD 05/11/2024 9:[address] [facility] ALT (SGPT) 19 10 - 60 unit/L LAB CHEMISTRY METHOD 05/11/2024 9:[address] [facility] Alkaline Phosphatase 125(H) 42 - 121 unit/L LAB CHEMISTRY METHOD 05/11/2024 9:[address] [facility] Total Protein 6.2 6.0 - 8.0 g/dL LAB CHEMISTRY METHOD 05/11/2024 9:[address] [facility] Albumin 3.2 3.2 - 5.0 g/dL LAB CHEMISTRY METHOD 05/11/2024 9:[address] [facility] Total Bilirubin 0.3 0.0 - 1.4 mg/dL LAB CHEMISTRY METHOD 05/11/2024 9:[address] [facility] Blood Venous blood specimen / Unknown 05/11/2024 6:55 AM EST 05/11/2024 8:55 AM EST us Stefano Rudd MD LAB BLOOD ORDERABLES Final Resul t [facility] [address] [place] [address], documented in this encounter Visit Diagnoses Diagnosis Hemiplegia and hemiparesis following cerebral infarction affecting left dominant side (CMS/HCC V24, CMS/HCC V28) documented in this encounter Care Teams Order Make Up Clerk Relationship Specialty Start Date End Date Stefano Rudd MD [address] [place], [place] PCP - General Internal Medicine 08/26/24 documented as of this encounter
--- OUTSIDE RECORDS SUMMARY | 2024-10-12 09:04 | XMS_ITS | Clinical Summary ---
Author Organization Replaced By [facility] Address [facility] [place] [address] Care Team Providers Care Field Artillery Crewmember Name Role Phone James Pizano Olvin DAVIDSON Primary Care Provider [phone] Allergies Active Allergy Reactions Criticality Noted Date [...] opioid overdose) for up to 2 doses. Longs into one nostril (either left or right). [...] drink = 0.6 oz pur e alcohol) [facility] Utilities Answer Date Recorded In the past 12 months has th e [employer], gas, oil, or water Videofro[employer] threatened to shut off services in your [...] place to sleep or slept in a assisted (including now)? No 09/28/2023 Housing Stability Vital Sign Answer Nicola e Recorded In the last 12 months, was t here a time when you were not able to pay the mortgage or rent on time? No 01/11/2024 In the past 12 months, how m any times have you moved where you were living? 1 01/11/2024 At any time in the past [address] [facility], were you homeless or living in a assisted (including now)? No 01/11/2024 DH IPV Inpatient [...] - 199 mg/dL 02/12/2024 8:[address] [facility] Comment:Glucose Concentratio n >=200 mg/dL plus symptoms is consistent with Diabetes Mellitus. Blood Urea Nitrogen 55(H) 10 - 20 mg/dL 02/12/2024 8:[address] [facility] Creatinine 1.38 0.80 - 1.50 mg/dL 02/12/2024 8:[address] [facility] Sodium 138 135 - 145 mMol/L 02/12/2024 8:[address] [facility] Potassium 4.3 3.5 - 5.0 mMol/L 02/12/2024 8:[address] [facility] Chloride 103 98 - 107 mMol/L 02/12/2024 8:[address] [facility] Carbon Dioxide 26 22 - 31 mMol/L 02/12/2024 8:[address] [facility] Anion Gap 9 5 - 15 mMol/L 02/12/2024 8:[address] [facility] Calcium 9.3 8.5 - 10.5 mg/dL 02/12/2024 8:52 AM [facility] Est Glomerular Filtration Rate - Male 60 mL/min/1. 73 m?? 02/12/2024 8:[address] [facility] Comment: This patient's estimated GFR was [...] AM EDT Rakan Cruz MD CHEMISTRY ORDERABLES [facility] [place] [address] * (ABNORMAL) Blood Gas, Arterial POC (01/21/2024 5:33 AM EDT) pH, Arterial 7.40 7.35 - 7.45 01/21/2024 6:[address] [facility] PCO2, Arterial 40 35 - 45 mmHg 01/21/2024 6:53 AM [facility] PO2, Arterial 97 85 - 104 mmHg 01/21/2024 6:53 AM [facility] Bicarbonate, Arterial 24.2 20.0 - 26.0 mmol/L 01/21/2024 6:53 AM [facility] Base Excess, Arterial -0.5 -3.0 - 3.0 mmol/L 01/21/2024 6:53 AM [facility] Hemoglobin, Arterial 9.4(L) 13.7 - 16.5 g/dL 01/21/2024 6:53 AM [facility] Oxyhemoglobin, Arterial 96.3 94.0 - 97.0 % 01/21/2024 6:53 AM [facility] Carboxyhemoglobin, Arterial 0.6 % 01/21/2024 6:53 AM [facility] Comment: Nonsmokers: 0.5-1.5% COHB ?? Smokers: Variable ??but usually less than 10% ?? Toxic: 20-30% COHB ?? Lethal: Greater than 60% COHB Methemoglobin, Arterial 0.3 <=1.5 % 01/21/2024 6:53 AM [facility] Sodium, Arterial 136 135 - 145 mmol/L 01/21/2024 6:53 AM [facility] Potassium, Arterial 3.9 3.5 - 5.0 mmol/L 01/21/2024 6:53 AM [facility] Chloride, Arterial 103 98 - 107 mmol/L 01/21/2024 6:53 AM [facility] Lactate, Arterial 1.8 0.5 - 2.2 mmol/L 01/21/2024 6:53 AM [facility] Fraction of Inspired Oxygen 21 % 01/21/2024 6:53 AM [facility] PF Ratio 462 Ratio 01/21/2024 6:53 AM [facility] Comment:PF ratio calculated using the non-temperature corrected pO2 result. IONIZED CALCIUM, ARTERIAL 1.18 1.15 - 1.33 mmol/L 01/21/2024 6:[address] [facility] Glucose, Arterial 138 65 - 199 mg/dL 01/21/2024 6:[address] [facility] Comment:Glucose Concentratio n >=200 mg/dL plus symptoms is consistent with Diabetes Mellitus. Blood ARTERIAL BLOOD / Unknown 01/21/2024 5:33 AM EDT 01/21/2024 6:53 AM EDT Nghia Westbrook DO POINT OF CARE TEST O RDERABLES Performing Organization Address City/[facility]/ZIP Co de Phone Number [facility] [place] [address] * (ABNORMAL) Hemoglobin A1c (01/11/2024 5:59 AM EDT) Hemoglobin A1c 8.6(H) 4.3 - 5.6 % 01/11/2024 8:[address] [facility] Comment: Per ADA guidelines, without clear [...] red blood cell turnover may not be insurance claims representative of glycemic control. Reference Interval: 4.3 - 5.6% 5.7 - 6.4%: Consistent with prediabetes >=6.5%: Consistent with diagnosis of diabetes mellitus Estimated Average Glucose 200 mg/dL 01/11/2024 8:[address] [facility] Blood VENOUS BLOOD SPECIMEN / Unknown IP Care Team Draw / Unknown 01/11/2024 5:59 AM EDT 01/11/2024 6:08 AM EDT Alverto Almanza MD CHEMISTRY ORDERABLES [facility] [place] [address] * HDL/Cholesterol Profile (08/01/2023 6:35 AM EST) Cholesterol, Total 141 mg/dL [facility] Comment: Lower Risk: <200 mg/dL Average Risk: 200-239 mg/dL Higher Risk: >zy=484 mg/dL HDL Cholesterol 36 mg/dL [facility] Comment: Males: ?? Higher Risk: <40 mg/dL Females: ?? Higher Risk: <50 mg/dL Cholesterol/HDL Ratio 3.9 ratio [facility] Chol/HDL Interpretation See Note [facility] Comment: Lipid management should be guided by a patient? s ASCVD risk, goals and preferences. ACC/AHA Guidelines recommend high intensity statin if clinical ASCVD or LDL greater than or equal to 190 mg/dL. http://Biodel.com/UZD-JLP-Iywmjyyjx Measure LDL if Total Cholesterol minus HDL Cholesterol is greater than 220 mg/dL. Adults aged 40-75 with LDL 70-189 mg/dL should have their 10 year ASCVD risk estimated with the ACC/AHA ASCVD risk printing estimator http://tools.acc.org/CBNRQ-Dwwl-Cuxkjiwvp/ Statin should be discussed if risk greater [...] Lab Zoe Marie MD CHEMISTRY ORDERABL ES [facility] [place] [address] from Last 3 Months or Most Recently Relevant to Health Maintenance Advance Directives Documents on File Type Date Recorded Patient Farm Products Shipper Expl anation Advance Directives and Living Will [...] Status decision made by: Patient Care Teams Field Artillery Crewmember Relationship Specialty Start Date End Date James Pizano, TECHNICAL APPLICATIONS SCIENTIST [address] [place] [address] PCP - General Family Medicine 06/10/17
--- OUTSIDE RECORDS SUMMARY | 2024-10-12 09:04 | XMS_ITS | Continuity of Care Document ---
Author Organization [facility] Address [address] [place] [address] [address] [place], [place] Phone [phone] Care Team Providers Care Gravel Wheeler Name Role Phone Jeremie Hanson PA-C Care Team Information Rec eiver Unavailable MARY JO MARQUIS M.D. Care Team Information Rec eiver Unavailable Jeremie Hanson PA-C Primary Care Physician Un available Social History Type Date Description Comments Sex Unknown
--- OUTSIDE RECORDS SUMMARY | 2024-10-12 09:04 | XMS_ITS | Clinical Summary ---
Author Organization [facility] Address [address] [address] Phone Care Team Providers Care Application Design Engineer Name Role Phone Unavailable Primary Care Provider Unavailabl e Allergies Active Allergy Reactions Criticality Noted Date Comments Penicillins 10/07/2024 Medications acetaminophen (TYLENOL) 325 MG suppository Insert 325 mg into the rectum every 4 (four) hours if needed for mild pain Active Albuterol Sulfate 108 (90 Base) MCG/ACT aerosol powder Inhale Activ e apixaban (ELIQUIS) 2.5 MG tablet Take 5 mg by mouth in the morning and 5 mg in the evening. Active ascorbic acid (VITAMIN C) 250 MG tablet Take 250 mg by mouth 1 (one) time each day Active atorvastatin (LIPITOR) 40 MG tablet Take 40 mg by mouth 1 (one) time each day Active baclofen (LIORESAL) 10 MG tablet Take 10 mg by mouth in the morning and 10 mg in the evening and 10 mg before bedtime. Active DULoxetine HCl 40 MG capsule delayed-release particles Take by mouth Active Active Problems Problem Noted Date Diagnosed Date Hemiplegia and hemiparesis f ollowing cerebral infarction affecting left dominant side 10/07/2024 Other specified arthritis, right ankle and foot 10/07/2024 Benign prostatic hyperplasia with lower urinary tract symptom 10/07/2024 Other bipolar disorder 10/07/2024 Occlusion and stenosis of right carotid artery 0 10/07/2024 Stage 3a chronic kidney disease 10/07/2024 Renal osteodystrophy 10/07/2024 Type 1 diabetes mellitus wit h diabetic chronic kidney disease Diabetes mellitus without me ntion of complication, type II or unspecified type, not stated as uncontrolled Esophageal reflux Chronic viral hepatitis C Hyperglycemia Other and unspecified hyperlipidemia Encounters Date Type Department Care Team Description 10/07/2024 11:15 AM EDT Office Visit [facility] [address] [address] Shayne Najera MD Stage 3a chronic kidney disease (HCC) (Primary Dx); Renal osteodystrophy; 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) from Last 3 Months Social History Tobacco [...] - - Body Mass Index - - Plan of Treatment Upcoming Encounters Date Type Department Care Team (Late st Contact Info) Description 11/24/2024 11:00 AM EDT Office Visit [facility] [address] [address] Felicitas Nunez ARNP [address] [address] Health Maintenance Due Date Last Done Comments Hepatitis B Vaccine (1 of 3 - 19+ 3-dose series) 10/20/1986 Pneumococcal Vaccine: 50+ Ye ars (1 of 2 - PCV) 10/20/1986 Colorectal Cancer Screening: Annual FOBT 10/20/2016 Colorectal Cancer Screening: Colonoscopy 10/20/2016 Colorectal Cancer Screening: Sigmoidoscopy 10/20/2016 Diabetes: Ophthalmology Exam 10/04/2024 Diabetes: Pedal Pulse Checked 10/04/2024 Diabetes: Sensory Foot Exam 10/04/2024 Diabetes: Visual Foot Exam 10/04/2024 Diabetes: Hemoglobin A1C 11/26/2024 08/26/2024, 03/0 10/2024 Influenza Vaccine (Season Ended) 2025 Procedures Procedure Name Priority Date/Time Associated Diagnosis Comments EXT RESULT ENTRY Routine 09/21/2024 from Last 3 Months Results * (ABNORMAL) EXT RESULT ENTRY (09/21/2024) [...] 9.7 8.7 - 10.7 mg/dL eGFR Non-Afr Moroccan 55 Magnesium 2.0 1.6 - 2.4 Total Bilirubin 0.30 MG/DL ALT (SGPT) 18 U/L AST (SGOT) 24 U/L 09/21/2024 us Historical Provider LAB BLOOD ORDERABLES Lissett l Result from Last 3 Months
--- OUTSIDE RECORDS SUMMARY | 2024-10-12 09:04 | XMS_ITS | Encounter Summary ---
Author Organization [employer] [facility] Address [address] [place] [address] Care Team Providers Care Yeast Culture Developer Name Role Phone Stefano Rudd MD Primary Care Provider [phone] Encounter Details Date Type Department Care Team (Late st Contact Info) Description 08/26/2024 Lab Requisition [facility] - Main Lab [address] [facility] [place] [address] Stefano Rudd MD [address] [place] [address] [address] [place] Type 2 diabetes mellitus without complications (CMS/HCC [...] V28) documented in this encounter Care Teams Yeast Culture Developer Relationship Specialty Start Date End Date Stefano Rudd MD [address] [place] [address] Dr [address] [place] PCP - General Internal Medicine 08/26/24 documented as of this encounter
--- OUTSIDE RECORDS SUMMARY | 2024-10-12 09:04 | XMS_ITS | Clinical Summary ---
Author Organization 299 [facility] Address [address] [place] [address] Phone Care Team Providers Care Special Education Supervisor Name Role Phone Stefano Rudd MD Primary Care Provider [phone] Encounters Date Type Department Care Team Description 08/27/2024 Lab Requisition [facility] Lab [address] [place] [phone] Stefano Rudd MD Urinary tract infection, site not specified 08/26/2024 Lab Requisition [facility] Lab [address] [place] [phone] Stefano Rudd MD Type 2 diabetes mellitus without complications (CMS/[facility] V24, [facility] V28) 08/26/2024 Lab Requisition [facility] Lab [address] [place] [phone] Stefano Rudd MD Type 1 diabetes mellitus with diabetic polyneuropathy (CMS/[facility] V24, [facility] V28) 08/10/2024 Lab Requisition [facility] Lab [address] [place] [phone] Stefano Rudd MD Bipolar disorder, unspecified (CMS/[facility] V24, CMS/[facility] V28) from Last 3 Months [...] Type 1 diabetes mellitus with diabetic polyneuropathy ([facility]/HCC) HEMOGLOBIN A1C Routine 08/10/2024 6:32 AM EST Bipolar disorder, unspecified ([facility]/HCC) COMPREHENSIVE METABOLIC PANEL Routine 05/11/2024 6:55 AM EST Hemiplegia and hemiparesis following cerebral infarction affecting left dominant side (CMS/HCC) LIPID PANEL WITH REFLEX TO DIRECT LDL Routine 05/11/2024 6:55 AM EST Hemiplegia and hemiparesis following cerebral infarction affecting left dominant side ([facility]/HCC) from Last 3 Months or Most Recently Relevant to Health Maintenance Results * (ABNORMAL) Urinalysis with reflex microscopic (08/27/2024 6:58 PM EDT) Specific [facility] Urine 1.022 1.003 - 1.030 LAB URINALYSIS - AUTOMATED METHOD 08/27/2024 9:16 PM [facility] pH, Urine 5.5 5.0 - 8.0 pH LAB URINALYSIS - AUTOMATED METHOD 08/27/2024 9:16 PM [facility] Leukocytes, Urine Moderate(A) Negative LAB URINALYSIS - AUTOMATED METHOD 08/27/2024 9:16 PM [facility] Nitrite, Urine Negative Negative LAB URINALYSIS - AUTOMATED METHOD 08/27/2024 9:16 PM [facility] Protein, Urine 30(A) <=Trace mg/dL LAB URINALYSIS - AUTOMATED METHOD 08/27/2024 9:16 PM [facility] Glucose, Urine 500(A) Negative mg/dL LAB URINALYSIS - AUTOMATED METHOD 08/27/2024 9:16 PM [facility] Ketones, Urine Negative Negative mg/dL LAB URINALYSIS - AUTOMATED METHOD 08/27/2024 9:16 PM [facility] Urobilinogen , Urine 1.0 0.2 - 1.0 mg/dL LAB URINALYSIS - AUTOMATED METHOD 08/27/2024 9:16 PM [facility] Bilirubin, Urine Negative Negative LAB URINALYSIS - AUTOMATED METHOD 08/27/2024 9:16 PM [facility] Blood, Urine Small(A) Negative LAB URINALYSIS - AUTOMATED METHOD 08/27/2024 9:16 PM [facility] RBC, Urine 10(H) 0 - 4 /HPF 08/27/2024 9:16 PM [facility] WBC, Urine >100(H) 0 - 4 /HPF 08/27/2024 9:16 PM [facility] Squamous Epithelial, Urine 2 0 - 60 /LPF 08/27/2024 9:16 PM [facility] Bacteria, Urine Negative Negative /HPF 08/27/2024 9:16 PM [facility] Hyaline Casts, Urine 0 0 - 3 /LPF 08/27/2024 9:16 PM [facility] Yeast, Urine Present(A) None /HPF 08/27/2024 9:16 PM [facility] Urine Urine specimen obtained by clean catch procedure / Unknown 08/27/2024 6:58 PM EDT 08/27/2024 8:54 PM EDT us Stefano Rudd MD LAB URINE ORDERABLES Final Resul t [facility] [address] [place] [address], [place] [phone] * Thomas urine culture tube (08/27/2024 6:58 PM EDT) [facility] Extra Tube Hold for add-ons. 08/27/2024 10:03 PM EDT [facility] Comment:Auto resulted. Urine Urine specimen obtained by clean catch procedure / Unknown 08/27/2024 6:58 PM EDT 08/27/2024 8:54 PM EDT Stefano Rudd MD LAB URINE ORDERABLES Final Resul t Performing Organization Address [facility] Co de Phone Number [facility] [address] [place] [address], [place] [phone] * (ABNORMAL) Complete blood count (08/26/2024 7:09 AM EDT) [facility] WBC 5.6 4.8 - 10.8 K/mcL LAB HEMETOLOGY METHOD 08/26/2024 8:02 AM [facility] RBC 3.80(L) 4.50 - 5.50 M/mcL LAB HEMETOLOGY METHOD 08/26/2024 8:02 AM [facility] Hemoglobin 11.1(L) 13.5 - 17.5 g/dL LAB HEMETOLOGY METHOD 08/26/2024 8:02 AM [facility] Hematocrit 33.9(L) 42.0 - 54.0 % LAB HEMETOLOGY METHOD 08/26/2024 8:02 AM [facility] MCV 90.2 79.0 - 98.0 FL LAB HEMETOLOGY METHOD 08/26/2024 8:02 AM [facility] MCH 29.5 27.0 - 32.0 pcg LAB HEMETOLOGY METHOD 08/26/2024 8:02 AM EDT [facility] MCHC 32.7 32.0 - 37.0 g/dL LAB HEMETOLOGY METHOD 08/26/2024 8:02 AM EDT [facility] RDW 13.4 11.0 - 15.0 % LAB HEMETOLOGY METHOD 08/26/2024 8:02 AM EDT [facility] Platelets 231 130 - 400 K/mcL LAB HEMETOLOGY METHOD 08/26/2024 8:02 AM EDT [facility] MPV 10.2 7.0 - 11.0 FL LAB HEMETOLOGY METHOD 08/26/2024 8:02 AM EDT [facility] NRBC 0.0 <1.0 % LAB HEMETOLOGY METHOD 08/26/2024 8:02 AM EDT [facility] NRBC Absolute 0.00 <0.10 K/mcL LAB HEMETOLOGY METHOD 08/26/2024 8:02 AM EDT [facility] Blood Venous blood specimen / Unknown 08/26/2024 7:09 AM EDT 08/26/2024 7:44 AM EDT us Stefano Rudd MD LAB BLOOD ORDERABLES Final Resul t [facility] [address] [place] [address], * (ABNORMAL) Hemoglobin A1c (08/26/2024 7:09 AM EDT) Only the most recent of2 resultswithin the time period is included. Hemoglobin A1C 7.4(H) <6.5 % LAB CHEMISTRY METHOD 08/26/2024 8:54 AM EDT [facility] Mean Bld Glu Estim. 166 mg/dL LAB CHEMISTRY METHOD 08/26/2024 8:54 AM EDT [facility] Blood Venous blood specimen / Unknown 08/26/2024 7:09 AM EDT 08/26/2024 7:44 AM EDT us Stefano Rudd MD LAB BLOOD ORDERABLES Final Resul t Performing Organization Address City/[facility]/ZIP Co de Phone Number [facility] [address] [place] [address], [place] [phone] * Lipid panel with reflex to direct LDL (05/11/2024 6:55 AM EST) Cholesterol 173 0 - 200 mg/dL LAB CHEMISTRY METHOD 05/11/2024 9:47 AM EST [facility] Triglycerides 55 0 - 150 mg/dL LAB CHEMISTRY METHOD 05/11/2024 9:[address] [facility] HDL 75 >=40 mg/dL LAB CHEMISTRY METHOD 05/11/2024 9:[address] [facility] LDL Calculated 87 0 - 100 mg/dL LAB CHEMISTRY METHOD 05/11/2024 9:47 AM EST [facility] VLDL Cholesterol Abdoul 11 mg/dL LAB CHEMISTRY METHOD 05/11/2024 9:[address] [facility] Non HDL Chol. (LDL+VLDL) 98 <145 mg/dL LAB CHEMISTRY METHOD 05/11/2024 9:[address] [facility] Chol/HDL Ratio 2.3 0.0 - 4.4 LAB CHEMISTRY METHOD 05/11/2024 9:[address] [facility] Blood Venous blood specimen / Unknown 05/11/2024 6:55 AM EST 05/11/2024 8:55 AM EST us Stefano Rudd MD LAB BLOOD ORDERABLES Final Resul t Performing Organization Address [facility]/ZIP Co de Phone Number [facility] [address] [place] [address], [place] [phone] * (ABNORMAL) Comprehensive metabolic panel (05/11/2024 6:55 AM EST) Sodium 136 133 - 145 mmol/L LAB CHEMISTRY METHOD 05/11/2024 9:[address] [facility] Potassium 4.6 3.5 - 5.5 mmol/L LAB CHEMISTRY METHOD 05/11/2024 9:[address] [facility] Chloride 104 96 - 110 mmol/L LAB CHEMISTRY METHOD 05/11/2024 9:[address] [facility] CO2 24 21 - 32 mmol/L LAB CHEMISTRY METHOD 05/11/2024 9:[address] [facility] Anion Gap 8 3 - 11 LAB CHEMISTRY METHOD 05/11/2024 9:[address] [facility] Glucose 471(HH) 70 - 100 mg/dL LAB CHEMISTRY METHOD 05/11/2024 9:[address] [facility] BUN 35(H) 5 - 25 mg/dL LAB CHEMISTRY METHOD 05/11/2024 9:[address] [facility] Comment:Results verified by repeat testing Creatinine 1.31(H) 0.70 - 1.30 mg/dL LAB CHEMISTRY METHOD 05/11/2024 9:[address] [facility] eGFR 64 >=60 mL/min/1. 73m2 LAB CHEMISTRY METHOD 05/11/2024 9:[address] [facility] Comment:Calculation based on the??Chronic Kidney Disease Epidemiology Collaboration (CKD-EPI) equation refit??without adjustment for race. BUN/Creatinine Ratio 26.7 LAB CHEMISTRY METHOD 05/11/2024 9:[address] [facility] Calcium 9.4 8.5 - 10.5 mg/dL LAB CHEMISTRY METHOD 05/11/2024 9:[address] [facility] AST (SGOT) 14 10 - 42 unit/L LAB CHEMISTRY METHOD 05/11/2024 9:[address] [facility] ALT (SGPT) 19 10 - 60 unit/L LAB CHEMISTRY METHOD 05/11/2024 9:54 AM EST [facility] Alkaline Phosphatase 125(H) 42 - 121 unit/L LAB CHEMISTRY METHOD 05/11/2024 9:54 AM EST [facility] Total Protein 6.2 6.0 - 8.0 g/dL LAB CHEMISTRY METHOD 05/11/2024 9:54 AM EST [facility] Albumin 3.2 3.2 - 5.0 g/dL LAB CHEMISTRY METHOD 05/11/2024 9:[address] [facility] Total Bilirubin 0.3 0.0 - 1.4 mg/dL LAB CHEMISTRY METHOD 05/11/2024 9:[address] [facility] Blood Venous blood specimen / Unknown 05/11/2024 6:55 AM EST 05/11/2024 8:55 AM EST us Stefano Rudd MD LAB BLOOD ORDERABLES Final Resul t [facility] [address] [place] [address], from Last 3 Months or Most Recently Relevant to Health Maintenance Insurance [facility] CARE MEDICAID Care Teams Special Education Supervisor Relationship Specialty Start Date End Date Stefano Rudd MD [address] [place] PCP - General Internal Medicine 08/26/24
--- OUTSIDE RECORDS SUMMARY | 2024-10-12 09:04 | XMS_ITS | Encounter Summary ---
Author Organization [facility] Address [address] [place] [address] Care Team Providers Care Eviscerator Name Role Phone Stefano Rudd MD Primary Care Provider [phone] Encounter Details Date Type Department Care Team (Late st Contact Info) Description 08/27/2024 Lab Requisition [facility] - Main Lab [address] [place] [address] Stefano Rudd MD [address] [place] [address] [address] [place] Urinary tract infection, site not specified Social [...] reflex microscopic (08/27/2024 6:58 PM EDT) Specific [place] Urine 1.022 1.003 - 1.030 LAB URINALYSIS - AUTOMATED METHOD 08/27/2024 9:16 PM EDT [facility] pH, Urine 5.5 5.0 - 8.0 pH LAB URINALYSIS - AUTOMATED METHOD 08/27/2024 9:16 PM [facility] Leukocytes, Urine Moderate(A) Negative LAB URINALYSIS - AUTOMATED METHOD 08/27/2024 9:16 PM [facility] Nitrite, Urine Negative Negative LAB URINALYSIS - AUTOMATED METHOD 08/27/2024 9:16 PM [facility] Protein, Urine 30(A) <=Trace mg/dL LAB URINALYSIS - AUTOMATED METHOD 08/27/2024 9:16 PM [facility] Glucose, Urine 500(A) Negative mg/dL LAB URINALYSIS - AUTOMATED METHOD 08/27/2024 9:16 PM [facility] Ketones, Urine Negative Negative mg/dL LAB URINALYSIS - AUTOMATED METHOD 08/27/2024 9:16 PM [facility] Urobilinogen , Urine 1.0 0.2 - 1.0 mg/dL LAB URINALYSIS - AUTOMATED METHOD 08/27/2024 9:16 PM [facility] Bilirubin, Urine Negative Negative LAB URINALYSIS - AUTOMATED METHOD 08/27/2024 9:16 PM [facility] Blood, Urine Small(A) Negative LAB URINALYSIS - AUTOMATED METHOD 08/27/2024 9:16 PM [facility] RBC, Urine 10(H) 0 - 4 /HPF 08/27/2024 9:16 PM [facility] WBC, Urine >100(H) 0 - 4 /HPF 08/27/2024 9:16 PM [facility] Squamous Epithelial, Urine 2 0 - 60 /LPF 08/27/2024 9:16 PM [facility] Bacteria, Urine Negative Negative /HPF 08/27/2024 9:16 PM [facility] Hyaline Casts, Urine 0 0 - 3 /LPF 08/27/2024 9:16 PM EDT [facility] Yeast, Urine Present(A) None /HPF 08/27/2024 9:16 PM EDT [facility] Urine Urine specimen obtained by clean catch procedure / Unknown 08/27/2024 6:58 PM EDT 08/27/2024 8:54 PM EDT us Stefano Rudd MD LAB URINE ORDERABLES Final Resul t Performing Organization Address City/[facility]/ZIP Co de Phone Number [facility] [address] [place] [address], [place] [phone] * Thomas urine culture tube (08/27/2024 6:58 PM EDT) Extra Tube Hold for add-ons. 08/27/2024 10:03 PM EDT [facility] Comment:Auto resulted. Urine Urine specimen obtained by clean catch procedure / Unknown 08/27/2024 6:58 PM EDT 08/27/2024 8:54 PM EDT us Stefano Rudd MD LAB URINE ORDERABLES Final Resul t Performing Organization Address City/[facility] Co de Phone Number [facility] [address] [place] [address], [place] [phone] documented in this encounter Visit Diagnoses Diagnosis Urinary tract infection, site not specified documented in this encounter Care Teams Eviscerator Relationship Specialty Start Date End Date Stefano Rudd MD [address] [place] [address] [address] [place] PCP - General Internal Medicine 08/26/24 documented as of this encounter
--- OUTSIDE RECORDS SUMMARY | 2024-10-12 09:04 | XMS_ITS | Encounter Summary ---
Author Organization [facility] Address [address] [place] [address] Care Team Providers Care [employer] Consultant Name Role Phone Stefano Rudd MD Primary Care Provider [phone] Encounter Details Date Type Department Care Team (Late st Contact Info) Description 04/13/2024 Lab Requisition [facility] - Main Lab [address] [facility] [place] [address] Stefano Rudd MD [address] [place] [address] [address] [place] Type 1 diabetes mellitus with diabetic nephropathy [...] CBC auto differential (04/13/2024 8:40 AM EST) [facility] WBC 11.0(H) 4.8 - 10.8 K/mcL LAB HEMETOLOGY METHOD 04/13/2024 10:54 AM [facility] RBC 3.40(L) 4.50 - 5.50 M/mcL LAB HEMETOLOGY METHOD 04/13/2024 10:54 AM [facility] Hemoglobin 10.6(L) 13.5 - 17.5 g/dL LAB HEMETOLOGY METHOD 04/13/2024 10:54 AM [facility] Hematocrit 32.3(L) 42.0 - 54.0 % LAB HEMETOLOGY METHOD 04/13/2024 10:54 AM [facility] MCV 94.7 79.0 - 98.0 FL LAB HEMETOLOGY METHOD 04/13/2024 10:54 AM [facility] MCH 31.1 27.0 - 32.0 pcg LAB HEMETOLOGY METHOD 04/13/2024 10:54 AM [facility] MCHC 32.8 32.0 - 37.0 g/dL LAB HEMETOLOGY METHOD 04/13/2024 10:54 AM [facility] RDW 13.7 11.0 - 15.0 % LAB HEMETOLOGY METHOD 04/13/2024 10:54 AM [facility] Platelets 377 130 - 400 K/mcL LAB HEMETOLOGY METHOD 04/13/2024 10:54 AM [facility] MPV 10.8 7.0 - 11.0 FL LAB HEMETOLOGY METHOD 04/13/2024 10:54 AM [facility] NRBC 0.0 <1.0 % LAB HEMETOLOGY METHOD 04/13/2024 10:54 AM [facility] NRBC Absolute 0.00 <0.10 K/mcL LAB HEMETOLOGY METHOD 04/13/2024 10:54 AM [facility] Neutrophils Relative 78.2 % LAB HEMETOLOGY METHOD 04/13/2024 10:54 AM [facility] Lymphocytes Relative 12.3 % LAB HEMETOLOGY METHOD 04/13/2024 10:54 AM [facility] Monocytes Relative 4.9 % LAB HEMETOLOGY METHOD 04/13/2024 10:54 AM [facility] Eosinophils Relative 3.1 % LAB HEMETOLOGY METHOD 04/13/2024 10:54 AM [facility] Basophils Relative 0.9 % LAB HEMETOLOGY METHOD 04/13/2024 10:54 AM [facility] Immature Granulocytes Relative 0.6 % LAB HEMETOLOGY METHOD 04/13/2024 10:54 AM [facility] Neutrophils Absolute 8.59(H) 1.50 - 7.00 K/mcL LAB HEMETOLOGY METHOD 04/13/2024 10:54 AM [facility] Lymphocytes Absolute 1.35 1.00 - 5.00 K/mcL LAB HEMETOLOGY METHOD 04/13/2024 10:54 AM [facility] Monocytes Absolute 0.54 0.20 - 1.00 K/mcL LAB HEMETOLOGY METHOD 04/13/2024 10:54 AM EST [facility] Eosinophils Absolute 0.34 0.00 - 0.50 K/[facility] LAB HEMETOLOGY METHOD 04/13/2024 10:54 AM EST [facility] Basophils Absolute 0.10 0.00 - 0.20 K/[facility] LAB HEMETOLOGY METHOD 04/13/2024 10:54 AM EST [facility] Immature Granulocytes Absolute 0.07(H) 0.00 - 0.03 K/[facility] LAB HEMETOLOGY METHOD 04/13/2024 10:54 AM EST [facility] Blood Venous blood specimen / Unknown 04/13/2024 8:40 AM EST 04/13/2024 9:44 AM EST us Stefano Rudd MD LAB BLOOD ORDERABLES Final Resul t Performing Organization Address City/[facility]/ZIP Co de Phone Number [facility] [address] [place] [address], [place] [phone] * Thyroid stimulating hormone (04/13/2024 8:40 AM EST) TSH 0.59 0.40 - 4.00 mcIU/mL LAB CHEMISTRY METHOD 04/13/2024 10:54 AM EST [facility] Blood Venous blood specimen / Unknown 04/13/2024 8:40 AM EST 04/13/2024 9:44 AM EST us Stefano Rudd MD LAB BLOOD ORDERABLES Final Resul t [facility] [address] [place] [address], [place] [phone] * Prostate specific antigen diagnostic (04/13/2024 8:40 AM EST) PSA 0.42 0.00 - 4.00 ng/mL LAB CHEMISTRY METHOD 04/13/2024 10:54 AM EST [facility] Blood Venous blood specimen / Unknown 04/13/2024 8:40 AM EST 04/13/2024 9:44 AM EST Narrative [facility] - 04/13/2024 10:54 AM EST The Siemens Advia Centaur Chemiluminescent Immunoassay is used. Results obtained with different assay methods or kits cannot be used interchangeably. Results cannot be interpreted as absolute evidence of the presence or absence of malignant disease. us Stefano Rudd MD LAB BLOOD ORDERABLES Final Resul t Performing Organization Address [facility]/ZIP Co de Phone Number [facility] [address] [place] [address], [place] [phone] * (ABNORMAL) Hemoglobin A1c (04/13/2024 8:40 AM EST) Hemoglobin A1C 7.2(H) <6.5 % LAB CHEMISTRY METHOD 04/14/2024 12:23 PM EST [facility] Mean Bld Glu Estim. 160 mg/dL LAB CHEMISTRY METHOD 04/14/2024 12:23 PM EST [facility] Blood Venous blood specimen / Unknown 04/13/2024 8:40 AM EST 04/13/2024 9:44 AM EST us Stefano Rudd MD LAB BLOOD ORDERABLES Final Resul t Performing Organization Address [facility]/ZIP Co de Phone Number [facility] [address] [place] [address], [place] [phone] * (ABNORMAL) Lipid panel with reflex to direct LDL (04/13/2024 8:40 AM EST) Cholesterol 193 0 - 200 mg/dL LAB CHEMISTRY METHOD 04/13/2024 10:54 AM EST [facility] Triglycerides 81 0 - 150 mg/dL LAB CHEMISTRY METHOD 04/13/2024 10:54 AM EST [facility] HDL 70 >=40 mg/dL LAB CHEMISTRY METHOD 04/13/2024 10:54 AM [facility] LDL Calculated 107(H) 0 - 100 mg/dL LAB CHEMISTRY METHOD 04/13/2024 10:54 AM EST [facility] VLDL Cholesterol Abdoul 16.2 mg/dL LAB CHEMISTRY METHOD 04/13/2024 10:54 AM [facility] Non HDL Chol. (LDL+VLDL) 123 <145 mg/dL LAB CHEMISTRY METHOD 04/13/2024 10:54 AM [facility] Chol/HDL Ratio 2.8 0.0 - 4.4 LAB CHEMISTRY METHOD 04/13/2024 10:54 AM [facility] Blood Venous blood specimen / Unknown 04/13/2024 8:40 AM EST 04/13/2024 9:44 AM EST us Stefano Rudd MD LAB BLOOD ORDERABLES Final Resul t [facility] [address] [place] [address], [place] [phone] * (ABNORMAL) Comprehensive metabolic panel (04/13/2024 8:40 AM EST) Sodium 139 133 - 145 mmol/L LAB CHEMISTRY METHOD 04/13/2024 10:54 AM [facility] Potassium 4.4 3.5 - 5.5 mmol/L LAB CHEMISTRY METHOD 04/13/2024 10:54 AM [facility] Chloride 105 96 - 110 mmol/L LAB CHEMISTRY METHOD 04/13/2024 10:54 AM [facility] CO2 28 21 - 32 mmol/L LAB CHEMISTRY METHOD 04/13/2024 10:54 AM [facility] Anion Gap 6 3 - 11 LAB CHEMISTRY METHOD 04/13/2024 10:54 AM [facility] Glucose 76 70 - 100 mg/dL LAB CHEMISTRY METHOD 04/13/2024 10:54 AM [facility] BUN 15 5 - 25 mg/dL LAB CHEMISTRY METHOD 04/13/2024 10:54 AM [facility] Creatinine 0.96 0.70 - 1.30 mg/dL LAB CHEMISTRY METHOD 04/13/2024 10:54 AM [facility] eGFR 93 >=60 mL/min/1. 73m2 LAB CHEMISTRY METHOD 04/13/2024 10:54 AM [facility] Comment:Calculation based on the??Chronic Kidney Disease Epidemiology Collaboration (CKD-EPI) equation refit??without adjustment for race. BUN/Creatinine Ratio 15.6 LAB CHEMISTRY METHOD 04/13/2024 10:54 AM [facility] Calcium 9.8 8.5 - 10.5 mg/dL LAB CHEMISTRY METHOD 04/13/2024 10:54 AM [facility] AST (SGOT) 21 10 - 42 unit/L LAB CHEMISTRY METHOD 04/13/2024 10:54 AM [facility] ALT (SGPT) 23 10 - 60 unit/L LAB CHEMISTRY METHOD 04/13/2024 10:54 AM [facility] Alkaline Phosphatase 125(H) 42 - 121 unit/L LAB CHEMISTRY METHOD 04/13/2024 10:54 AM [facility] Total Protein 7.1 6.0 - 8.0 g/dL LAB CHEMISTRY METHOD 04/13/2024 10:54 AM [facility] Albumin 3.4 3.2 - 5.0 g/dL LAB CHEMISTRY METHOD 04/13/2024 10:54 AM [facility] Total Bilirubin 0.2 0.0 - 1.4 mg/dL LAB CHEMISTRY METHOD 04/13/2024 10:54 AM [facility] Blood Venous blood specimen / Unknown 04/13/2024 8:40 AM EST 04/13/2024 9:44 AM EST us Stefano Rudd MD LAB BLOOD ORDERABLES Final Resul t [facility] ([facility]) [facility] [address] [place] [address], documented in this encounter Visit Diagnoses Diagnosis Type 1 diabetes mellitus with diabetic nephropathy (CMS/[facility] V24, CMS/[facility] V28) Benign prostatic hyperplasia with lower urinary tract symptoms documented in this encounter Care Teams [employer] Consultant Relationship Specialty Start Date End Date Stefano Rudd MD [address] [place] [address] Dr [address] [place], [place] PCP - General Internal Medicine 08/26/24 documented as of this encounter
== END 2024-10-12 09:09 | disposition home or self-care (01) ==
LOC: HO.HUSH 08:44
PROVIDERS: PCP Hospitalist; Visit Provider Urology
DX: R33.9 Retention of urine, unspecified (principal)
CPT/HCPCS: 99204; G2211

== ENCOUNTER → 2024-10-12 08:43 | Outpatient (BNVA) | payer MEDICAID, SELFPAY | PROVIDERS: PCP Hospitalist; Visit Provider Urology | DX: R33.9 Retention of urine, unspecified (principal) | CPT/HCPCS: 99202 ==